=== PATIENT | female | born 1930 | race Hispanic/Latino ===

== ENCOUNTER 2017-03-06 10:31 | Inpatient (IN) | payer MEDICARE, BC ==
[2017-03-06 10:32] VITALS: BMI 22.6
--- NOTE | 2017-03-06 11:14 | C.PDOC ---
History Of Present Illness 86-year-old female, presents to the emergency department with complaints of pain to B/L lower extremities, left worse than right. Patient is sent here from Dialysis, for Dr Liu for further evaluation and possible admission. Chief Complaint (Nursing): Lower Extremity Problem/Injury History Per: Patient, Family History/Exam Limitations: no limitations Onset/Duration Of Symptoms: Days, Waxing/Waning Severity: Moderate Additional History Per: Family Past Medical History Reviewed: Historical Data, Nursing Documentation, Vital Signs Vital Signs: Last Vital Signs Temp 97.8 F 03/06/17 10:42 Pulse 71 03/06/17 10:42 Resp 18 03/06/17 10:42 BP 183/92 H 03/06/17 10:42 Pulse Ox 100 03/06/17 14:53 - Medical History PMH: Anxiety, Arthritis, Asthma, Atrial Fibrillation, CAD, Cardia Arrhythmia ( AFIB), CHF, COPD, Diabetes, Fractures (BRIDGE OF NOSE), HTN, Kidney Stones (1976 ), Peripheral Edema (ble +1 edema), Pneumonia, Chronic Kidney Disease Denies: Depression Surgical History: Coronary Stent (x7) Denies: Pacemaker - [facility] Procedures COLONOSCOPY (03/19/02) CONTRAST AORTOGRAM (05/25/14) CONTRAST ARTERIOGRAM-LEG (05/25/14) DIALYSIS ARTERIOVENOSTOM (09/04/12) DX ULTRASOUND-HEAD/NECK (03/01/12) ESOPHAGOGASTRODUODENOSCOPY [EGD] W/CLOSED BIOPSY (02/18/12) HEMODIALYSIS (02/17/15) INCIS W REM OF FORIEGN BODY OR DEV FROM SKIN & SUBCUT TISSUE (05/20/13) OCCUPATIONAL THERAPY (07/06/14) PACKED CELL TRANSFUSION (06/26/14) PHYSICAL THERAPY NEC (07/06/14) VASC SHUNT & BYPASS NEC (06/26/14) VENOUS CATHETERIZATION FOR RENAL DIALYSIS (03/01/12) Family History: States: No Known Family Hx - Social History Hx Tobacco Use: No Hx Alcohol Use: No Hx Substance Use: No - Immunization History Hx Tetanus Toxoid Vaccination: No Hx Influenza Vaccination: Yes Hx Pneumococcal Vaccination: Yes Review Of Systems Except As Marked, All Systems Reviewed And Found Negative. Constitutional: Negative for: Fever Cardiovascular: Negative for: Chest Pain Respiratory: Negative for: Cough, Shortness of Breath Musculoskeletal: Positive for: Foot Pain Physical Exam - Physical Exam Appears: Non-toxic, No Acute Distress Skin: Dry Head: Atraumatic Nose: Normal Oral Mucosa: Moist Lips: Normal Appearing Neck: Normal ROM Cardiovascular: Rhythm Regular, No Murmur Respiratory: Normal Breath Sounds, No Accessory Muscle Use Extremity: Tenderness (both feet left greater than right), Capillary Refill ( decdreased), Other (Left foot: cyanotic and cold to touch with gangrene and ulcer to first digit. Right foot: cyanotic, warm with ulcer and gangrene.) Neurological/Psych: Oriented x3 Gait: Unable To Assess ED Course And Treatment - Laboratory Results Result Diagrams: 03/06/17 12:05 03/06/17 13:10 Lab Interpretation: Abnormal ECG: Interpreted By Me ECG Rhythm: Sinus Tachycardia, Nonspecific Changes ECG Interpretation: No Acute Changes Rate From EC O2 Sat by Pulse Oximetry: 100 Pulse Ox Interpretation: Normal - Radiology CXR: Interpreted by Me CXR Interpretation: Yes: No Acute Disease Progress Note: Treated with tylenol 650 mg PO. Case discussed and patient evaluated by Dr Liu who request admission Reassessment Condition: Unchanged - Physician Consult Information Physician Contacted: Shabnam Ng Outcome Of Conversation: admit Disposition Discussed With : Shabnam Ng Doctor Will See Patient In The: Hospital - Disposition Disposition: HOSPITALIZED Disposition Time: 14:00 Condition: STABLE - POA Present On Arrival: None - Clinical Impression Clinical Impression: ESRD (end stage renal disease), Renal failure, Arterial, arteriole and capillary disease, Gangrene - Scribe Statement The provider has reviewed the documentation as recorded by the Scribe (Юлия Louis) All medical record entries made by the Scribe were at my direction and personally dictated by me. I have reviewed the chart and agree that the record accurately reflects my personal performance of the history, physical exam, medical decision making, and the department course for this patient. I have also personally directed, reviewed, and agree with the discharge instructions and disposition. Decision To Admit - Pt Status Changed To: Hospital Disposition Of: Inpatient - Admit Certification Admit to Inpatient:: After my assessment, the patient will require hospitalization for at least two midnights. This is because of the severity of symptoms shown, intensity of services needed, and/or the medical risk in this patient being treated as an outpatient. - InPatient: Physician Admission Certification: I certify that this patient requires 2 or more midnights of care for the following reason:: PVD. Ischemic left leg. gangrene foot - . Bed Request Type: Regular Admitting Physician: Antonio Drummond Patient Diagnosis: ESRD (end stage renal disease), Renal failure, Arterial, arteriole and capillary disease, Gangrene
[2017-03-06 12:18] LABS: BASO # 0.1 K/uL (0.0-0.2); BASO % 0.8 % (0.0-2.0); EOS # 0.7 K/uL (0.0-0.7); EOS % 6.7 % (0.0-4.0); HEMATOCRIT 38.6 % (34.0-47.0); LYMPH # 1.7 K/uL (1.0-4.3); LYMPH % 16.2 % (20.0-40.0); MEAN CELL VOLUME 86.7 fL (81.0-99.0); MEAN CORPUSCULAR HEMOGLOBIN 28.3 pg (27.0-31.0); MEAN CORPUSCULAR HGB CONC 32.6 g/dL (33.0-37.0); MEAN PLATELET VOLUME 9.8 fL (7.2-11.7); MONO # 1.3 K/uL (0.0-0.8); MONO % 11.6 % (0.0-10.0); RED CELL DISTRIBUTION WIDTH 14.2 % (11.5-14.5); WHITE BLOOD COUNT 10.8 K/uL (4.8-10.8)
[2017-03-06 13:23] LABS: POTASSIUM 4.8 mmol/L (3.6-5.2)
[2017-03-06 13:25] LABS: ALB/GLOB RATIO 1.1 (1.0-2.1); BILIRUBIN,TOTAL 0.6 mg/dL (0.2-1.3); TOTAL PROTEIN 7.5 g/dL (6.3-8.3)
[2017-03-06 13:26] LABS: CALCIUM 9.2 mg/dl (8.6-10.4)
--- NOTE | 2017-03-06 14:51 | RAD ---
PROCEDURE: CHEST RADIOGRAPH, 1 VIEW HISTORY: SOB COMPARISON: None available. FINDINGS: There is a left subclavian vascular stent. LUNGS: The lungs are well inflated. There are chronic changes in both lungs. No focal consolidation PLEURA: No pneumothorax or pleural fluid seen. CARDIOVASCULAR: The heart is normal in size. Atherosclerotic aortic arch calcifications are present. . OSSEOUS STRUCTURES: No significant abnormalities. VISUALIZED UPPER ABDOMEN: Normal. OTHER FINDINGS: There is elevation of the right hemidiaphragm. IMPRESSION: No active pulmonary disease.
--- NOTE | 2017-03-06 14:57 | CP.PCM.CON ---
History of Present Illness - History of Present Illness History of Present Illness: Vascular surgery consult note for Dr. Liu Consulted for: ischemic left leg Patient is a 86 year old female with PMH of afib, DM, CKD, and PVD, with PSH of Left fem-pop bypass by Dr. Liu >2 years ago presented to the ED with bilateral leg pain worse in the left. Patient states that her leg pain has been present for many months but has gotten significantly worse over the past week. Pain is associated with blue coloration of the toes and poikilothermia in the left leg. The pain is sharp in quality and states that her feet are both extremely sensitive. Pain radiates up through the front and back of the thigh. Patient explained this attack happens frequently in which the feet become very blue and painful but it is much worse the past week. Patient also reports having chronic wounds on her toes Bilaterally for 3 months that are worsening. Denies chills, nausea, vomiting, chest pain, and SOB. Patient states that currently her legs feel better than when she was admitted with some return of color to her feet. Review of Systems - Review of Systems All systems: reviewed and no additional remarkable complaints except (as per HPI ) - Constitutional Constitutional: absent: Chills, Fever, Weakness - Cardiovascular Cardiovascular: absent: Chest Pain, Chest Pain at Rest, Dyspnea, Edema - Respiratory Respiratory: absent: Cough, Dyspnea, Dyspnea on Exertion - Gastrointestinal Gastrointestinal: absent: Abdominal Pain, Hematochezia, Loose Stools, Melena, Nausea, Vomiting - Musculoskeletal Musculoskeletal: As Per HPI. absent: Numbness, Tingling Additional comments: Severe left leg pain, pallor, and coldness to the touch, no palpable pulses BL. - Integumentary Integumentary: As Per HPI, Non-Healing Lesions (large toes BL) - Neurological Neurological: Dizziness, Paresthesias. absent: Disequilibrium, Numbness Past Patient History - Infectious Disease Hx of Infectious Diseases: None - Tetanus Immunizations Tetanus Immunization: Unknown - Past Social History Smoking Status: Former Smoker - CARDIAC Hx Atrial Fibrillation: Yes Hx Cardia Arrhythmia: Yes (AFIB) Hx Congestive Heart Failure: Yes Hx Hypertension: Yes Hx Pacemaker: No Hx Peripheral Edema: Yes (ble +1 edema) - PULMONARY Hx Asthma: Yes Hx Chronic Obstructive Pulmonary Disease (COPD): Yes Hx Pneumonia: Yes - NEUROLOGICAL Hx Neurological Disorder: Yes Hx Dizziness: Yes - HEENT Hx HEENT Problems: No - RENAL Hx Chronic Kidney Disease: Yes Hx Kidney Stones: Yes (1975) - ENDOCRINE/METABOLIC Hx Endocrine Disorders: Yes Hx Diabetes Mellitus Type 2: Yes - HEMATOLOGICAL/ONCOLOGICAL Hx Blood Disorders: Yes (blood transfusion) - INTEGUMENTARY Hx Dermatological Problems: Yes Other/Comment: fading red rash to ble from knees to feet and r arm, bright red rash to right hand and arm, right hand/arm rash started today, right great toe right foot 0.2cm round brown dry wound, r 5th toe redness tip is purple due to medication,redness swelling to toes decreasing since yesterday as per family member and pt. small 0.2cm round brown dry wound to outer left great toe redness and swelling to toes improving since yesterday as per family member and pt but still has +1 edema to left foot, hard thick toenails b/l feet, both feet sensitive to touch - MUSCULOSKELETAL/RHEUMATOLOGICAL Hx Arthritis: Yes Hx Fractures: Yes (BRIDGE OF NOSE) - GASTROINTESTINAL Hx Gastrointestinal Disorders: Yes (hemorrhoid) Hx Ulcer: Yes Other/Comment: constipatiion has resolved x 1 yr pt does not take laxatives anymore - GENITOURINARY/GYNECOLOGICAL Hx Genitourinary Disorders: Yes Other/Comment: pt voids every day x3 [place] [facility] [place] PSYCHIATRIC Hx Anxiety: Yes Hx Depression: No Hx Substance Use: No - SURGICAL HISTORY Hx Coronary Stent: Yes (x7) - ANESTHESIA Hx Anesthesia Reactions: No Hx Malignant Hyperthermia: No Meds Allergies/Adverse Reactions: Allergies Allergy/AdvReac Type Severity Reaction Status Date / Time ciprofloxacin Allergy Severe hives Verified 03/06/17 11:09 codeine Allergy Severe hives Verified 03/06/17 11:09 Sulfa (Sulfonamide Allergy Severe HIVES Verified 03/06/17 11:09 Antibiotics) iodine Allergy ANAPHYLAXIS Verified 03/06/17 11:09 - Medications Medications: Current Medications Home Med (B Complex W-C No.20/Folic Acid [Triphrocaps Softgel]) 1 mg PO DAILY [facility] Home Med (Calcium Acetate [Calcium Acetate]) 667 mg PO .BEFOREMEALS [facility] Lisinopril (Zestril) 20 mg PO BID [facility] Metoprolol Succinate (Toprol Xl) 25 mg PO BID [facility] Physical Exam - Constitutional Appears: Non-toxic, No Acute Distress - Head Exam Head Exam: ATRAUMATIC, NORMOCEPHALIC - Eye Exam Eye Exam: Normal appearance. absent: Conjunctival injection, Scleral icterus - ENT Exam ENT Exam: Mucous Membranes Moist, Normal Oropharynx - Respiratory Exam Respiratory Exam: NORMAL BREATHING PATTERN. absent: Accessory Muscle Use, Respiratory Distress - Cardiovascular Exam Cardiovascular Exam: RRR - GI/Abdominal Exam GI & Abdominal Exam: absent: Distended, Soft, Tenderness - Extremities Exam Extremities exam: Positive for: tenderness (tenderness to light palpation in the lower leg and feet). Negative for: calf tenderness, normal capillary refill , pedal edema, pedal pulses present Additional comments: small lesions in the skin of multiple toes BL, with eschar overlying them. Cyanosis of the toes - Neurological Exam Neurological exam: Alert, Oriented x3 - Psychiatric Exam Psychiatric exam: Normal Affect, Normal Mood - Skin Skin Exam: Dry Additional comments: warm, dry, intact except as noted in the extremity exam Results - Vital Signs Recent Vital Signs: Last Vital Signs Temp 97.8 F 03/06/17 10:42 Pulse 71 03/06/17 10:42 Resp 18 03/06/17 10:42 BP 183/92 H 03/06/17 10:42 Pulse Ox 100 03/06/17 14:56 - Labs Result Diagrams: 03/06/17 12:05 03/06/17 13:10 Labs: Laboratory Results - last 24 hr 03/06/17 03/06/17 03/06/17 12:05 13:10 13:10 WBC 10.8 RBC 4.45 Hgb 12.6 Hct 38.6 MCV 86.7 MCH 28.3 MCHC 32.6 L RDW 14.2 Plt Count 235 MPV 9.8 Neut % (Auto) 64.7 Lymph % (Auto) 16.2 L Stafford % (Auto) 11.6 H Eos % (Auto) 6.7 H Baso % (Auto) 0.8 Neut # 7.0 Lymph # 1.7 Stafford # 1.3 H Eos # 0.7 Baso # 0.1 Sodium 139 Potassium 4.8 Chloride 92 L Carbon Dioxide 29 Anion Gap 23 H BUN 26 H Creatinine 3.6 H Est GFR ( Amer) 15 Est GFR (Non-Af Amer) 12 Random Glucose 119 H Calcium 9.2 Total Bilirubin 0.6 AST 18 ALT 25 Alkaline Phosphatase 85 Total Protein 7.5 Albumin 3.9 Globulin 3.5 Albumin/Globulin Ratio 1.1 Blood Type O POSITIVE Antibody Screen Negative Assessment & Plan - Assessment and Plan (Free Text) Assessment: 86 year old female with an ischemic left lower leg, suspicious for femoral- popliteal artery bypass occlusion. Plan -angiocatheterization with possible revascularization tomorrow -type and cross blood -analgesia, IVF -NPO after midnight -f/u duplex of lower extremities -monitor overnight Discussed with Dr. Alexa Shelton, PGY2
[2017-03-06] MEDS ORDERED: [UNRECOGNIZED DRUG - REMARK] PO SCH (15:00)
[2017-03-06] MEDS ORDERED: Heparin25000 units/250ml 1/2NS 25,000 UNITS/250 ML BAG IV PRN (16:13)
--- NOTE | 2017-03-06 16:40 | CP.PCM.HP ---
<Irina LoveDarrel - Last Filed: 03/06/17 18:25> History of Present Illness - History of Present Illness History of Present Illness: CC: right leg pain HPI: Patient is a 86 year old female with PMH of CAD, coronary stents x 7, AFib , CHF, COPD, DM, HTN, CKD (dialysis MWF), asthma, arthritis, anxiety, left leg femoral popliteal artery bypass (2014), who presents today for right leg pain and because her staffing and scheduling coordinator was concerned for a clot. Patient has been having left leg pain for one week. At home patient walks with a cane and has been able to continue ambulating this past week. Patient went to hemodialysis at [facility] [place] this morning with Dr. Cohen who was concerned for a clot in her left leg because of cyanosis and feeling cold to the touch. Dr. Cohen contacted Dr. Liu (vascular surgery) who told him to send patient to Emergency Room. Patient says she is feeling okay but her left leg is bothering her. She says it feels better when she is sitting with her feet dangling off the bed and worse when she is laying flat in bed. Patient admits to some abdominal pain and nausea in the past week which has resolved. She has had no episodes of vomiting. Patient admits to some dizziness during dialysis which is now resolved. She denies headache, shortness of breath, chest pain, constipation, diarrhea. PMD: Jeremie Cuellar Cardio: Dr. Hughes Nephro: Dr. Cohen Pmhx: CAD, coronary stents x 7, AFib, CHF, COPD, DM, HTN, CKD (dialysis MWF), asthma, arthritis, anxiety Psurg: left leg femoral popliteal artery bypass (2015), 7 stents Fam history: mother had CAD, cirrhosis, otherwise unknown Socialhx: stopped smoking cigarettes 30 years ago Allergies: Ciprofloxacin, Codeine, Sulfa- hives iodine -anaphylaxis Present on Admission - Present on Admission Any Indicators Present on Admission: Yes History of DVT/PE: Yes History of Uncontrolled Diabetes: No Urinary Catheter: No Decubitus Ulcer Present: No Review of Systems - Constitutional Constitutional: Weight Loss. absent: Frequent Falls, Headache, Weakness - EENT Eyes: absent: Blind Spots, Blurred Vision, Diplopia, Loss of Vision Ears: absent: Decreased Hearing, Dizziness Nose/Mouth/Throat: absent: Nasal Congestion, Hoarsness, Mouth Pain, Sore Throat - Cardiovascular Cardiovascular: absent: Dyspnea, Leg Edema, Lightheadedness, Palpitations - Respiratory Respiratory: Excessive Mucous Production - Gastrointestinal Gastrointestinal: absent: Abdominal Pain, Constipation, Diarrhea - Genitourinary Genitourinary: absent: Change in Urinary Stream, Difficulty Urinating, Urinary Incontinence, Urinary Frequency, Urinary Urgency - Musculoskeletal Musculoskeletal: absent: Muscle Weakness Additional comments: left leg pain - Integumentary Additional comments: bilateral ulcers on feet two ulcer on right toes and one on left foot - Neurological Neurological: absent: Dizziness - Psychiatric Psychiatric: absent: Behavioral Changes, Confusion - Endocrine Endocrine: absent: Change in Body Appearance, Palpitations - Hematologic/Lymphatic Hematologic: absent: Easy Bleeding, Easy Bruising Past Patient History - Infectious Disease Hx of Infectious Diseases: None - Tetanus Immunizations Tetanus Immunization: Unknown - Past Social History Smoking Status: Former Smoker - CARDIAC Hx Atrial Fibrillation: Yes Hx Cardia Arrhythmia: Yes (AFIB) Hx Congestive Heart Failure: Yes Hx Hypertension: Yes Hx Pacemaker: No Hx Peripheral Edema: Yes (ble +1 edema) - PULMONARY Hx Asthma: Yes Hx Chronic Obstructive Pulmonary Disease (COPD): Yes Hx Pneumonia: Yes - NEUROLOGICAL Hx Neurological Disorder: Yes Hx Dizziness: Yes - HEENT Hx HEENT Problems: No - RENAL Hx Chronic Kidney Disease: Yes Hx Kidney Stones: Yes (1975) - ENDOCRINE/METABOLIC Hx Endocrine Disorders: Yes Hx Diabetes Mellitus Type 2: Yes - HEMATOLOGICAL/ONCOLOGICAL Hx Blood Disorders: Yes (blood transfusion) - INTEGUMENTARY Hx Dermatological Problems: Yes Other/Comment: fading red rash to ble from knees to feet and r arm, bright red rash to right hand and arm, right hand/arm rash started today, right great toe right foot 0.2cm round brown dry wound, r 5th toe redness tip is purple due to medication,redness swelling to toes decreasing since yesterday as per family member and pt. small 0.2cm round brown dry wound to outer left great toe redness and swelling to toes improving since yesterday as per family member and pt but still has +1 edema to left foot, hard thick toenails b/l feet, both feet sensitive to touch - MUSCULOSKELETAL/RHEUMATOLOGICAL Hx Arthritis: Yes Hx Fractures: Yes (BRIDGE OF NOSE) - GASTROINTESTINAL Hx Gastrointestinal Disorders: Yes (hemorrhoid) Hx Ulcer: Yes Other/Comment: constipatiion has resolved x 1 yr pt does not take laxatives anymore - GENITOURINARY/GYNECOLOGICAL Hx Genitourinary Disorders: Yes Other/Comment: pt voids every day x3 dialysis m/w/f at [facility] [place] - PSYCHIATRIC Hx Anxiety: Yes Hx Depression: No Hx Substance Use: No - SURGICAL HISTORY Hx Coronary Stent: Yes (x7) - ANESTHESIA Hx Anesthesia Reactions: No Hx Malignant Hyperthermia: No Meds Allergies/Adverse Reactions: Allergies Allergy/AdvReac Type Severity Reaction Status Date / Time ciprofloxacin Allergy Severe hives Verified 03/06/17 11:09 codeine Allergy Severe hives Verified 03/06/17 11:09 Sulfa (Sulfonamide Allergy Severe HIVES Verified 03/06/17 11:09 Antibiotics) iodine Allergy ANAPHYLAXIS Verified 03/06/17 11:09 Physical Exam - Constitutional Appears: Non-toxic, No Acute Distress - Head Exam Head Exam: ATRAUMATIC, NORMAL INSPECTION, NORMOCEPHALIC - Eye Exam Eye Exam: EOMI, Normal appearance, PERRL - ENT Exam ENT Exam: Mucous Membranes Moist, Normal Exam - Neck Exam Neck exam: Positive for: Full Rom, Normal Inspection - Respiratory Exam Respiratory Exam: Rales, NORMAL BREATHING PATTERN Additional comments: faint bibasilar rales - Cardiovascular Exam Cardiovascular Exam: REGULAR RHYTHM, RRR - GI/Abdominal Exam GI & Abdominal Exam: Normal Bowel Sounds, Soft. absent: Distended, Firm, Guarding - Extremities Exam Extremities exam: Positive for: calf tenderness. Negative for: pedal edema Additional comments: left foot cold to the touch capillary refill <2 seconds left toes cyanotic right 5th toe dip: unstageable ulcer .8cm right 1st toe dip: .5 cm ulcer left 1st toe dip: .5cm ulcer ulcers dry, no purulence, no malodor - Back Exam Back exam: NORMAL INSPECTION. absent: rash noted - Neurological Exam Neurological exam: Alert, Oriented x3 - Psychiatric Exam Psychiatric exam: Normal Affect, Normal Mood - Skin Additional comments: left foot cold to the touch, cyanotic toes right 5th toe dip: unstageable ulcer .8cm right 1st toe dip: .5 cm ulcer left 1st toe dip: .5cm ulcer ulcers dry, no purulence, no malodor Results - Vital Signs Recent Vital Signs: Last Vital Signs Temp 97.8 F 03/06/17 10:42 Pulse 85 03/06/17 15:31 Resp 18 03/06/17 15:31 BP 187/74 H 03/06/17 15:39 Pulse Ox 97 03/06/17 15:31 - Labs Result Diagrams: 03/06/17 12:05 03/06/17 16:52 Labs: Laboratory Results - last 24 hr 03/06/17 03/06/17 03/06/17 12:05 13:10 13:10 WBC 10.8 RBC 4.45 Hgb 12.6 Hct 38.6 MCV 86.7 MCH 28.3 MCHC 32.6 L RDW 14.2 Plt Count 235 MPV 9.8 Neut % (Auto) 64.7 Lymph % (Auto) 16.2 L [place] % (Auto) 11.6 H Eos % (Auto) 6.7 H Baso % (Auto) 0.8 Neut # 7.0 Lymph # 1.7 [place] # 1.3 H Eos # 0.7 Baso # 0.1 Sodium 139 Potassium 4.8 Chloride 92 L Carbon Dioxide 29 Anion Gap 23 H BUN 26 H Creatinine 3.6 H Est GFR ( Amer) 15 Est GFR (Non-Af Amer) 12 Random Glucose 119 H Calcium 9.2 Total Bilirubin 0.6 AST 18 ALT 25 Alkaline Phosphatase 85 Total Protein 7.5 Albumin 3.9 Globulin 3.5 Albumin/Globulin Ratio 1.1 Blood Type O POSITIVE Antibody Screen Negative Assessment & Plan - Assessment and Plan (Free Text) Assessment: 1. Peripheral Vascular Disease Dr. Liu (surgery) consulted, help appreciated patient to go for procedure 03/07/17 NPO at midnight Heparin drip started, to be stopped on 03/07 at 9am PT, PTT, INR 2. CAD s/p 7 stents cardio: Dr. Hughes, consulted, help appreciated Metoprolol 25 mg PO BID hold if systolic <100, HR <60 3. Foot ulcers right 5th toe DIP: unstageable ulcer .8cm, black/purple in color due to medication right 1st toe DIP: .5 cm ulcer left 1st toe DIP: .5cm ulcer * ulcers dry, no purulence, no malodor Dr. Cuadra, podiatry following ulcers outpatient Dr. Cuadra consulted, help appreciated 4. CHF Echo (01/2017) - EF estimated to be 55% ekg: NSR with first degree block (unchanged from 01/26) Crestor 10 mg f/u proBNP f/u lipid panel f/u TSH, T4 5. HTN Metoprolol 25 mg PO BID hold if systolic <100, HR <60 Lisinopril 20 mg PO BID Clonidine .1mg for systolic >160 6. DM type 2 hold prandin due to procedure tomorrow which may/may not include contrast accuchecks ACHS ISS -- low 7. ESRD Dr. Cohen, consulted, help appreciated * physician is aware Hemodialysis MWF 8. COPD, Asthma Ipratropium 2 puff IH q6h PRN 9. Hx Afib vitals stable, HR controlled, no need for telemetry metoprolol as above aspirin held because heparin drip started 10. Hx anxiety monitor 11. Hx arthritis monitor 12. Prophylactic measures pepcid 20 mg BID heparin drip SCDs contraindicated fluid restriction -24 oz per day <Antonio Drummond - Last Filed: 03/06/17 21:12> Results - Vital Signs Recent Vital Signs: Last Vital Signs Temp 98.4 F 03/06/17 18:15 Pulse 84 03/06/17 18:15 Resp 20 03/06/17 18:15 BP 175/65 H 03/06/17 18:15 Pulse Ox 99 03/06/17 18:15 - Labs Result Diagrams: 03/06/17 12:05 03/06/17 16:52 Labs: Laboratory Results - last 24 hr 03/06/17 03/06/17 03/06/17 12:05 13:10 13:10 WBC 10.8 RBC 4.45 Hgb 12.6 Hct 38.6 MCV 86.7 MCH 28.3 MCHC 32.6 L RDW 14.2 Plt Count 235 MPV 9.8 Neut % (Auto) 64.7 Lymph % (Auto) 16.2 L [place] % (Auto) 11.6 H Eos % (Auto) 6.7 H Baso % (Auto) 0.8 Neut # 7.0 Lymph # 1.7 [place] # 1.3 H Eos # 0.7 Baso # 0.1 PT INR APTT Sodium 139 Potassium 4.8 Chloride 92 L Carbon Dioxide 29 Anion Gap 23 H BUN 26 H Creatinine 3.6 H Est GFR ( Amer) 15 Est GFR (Non-Af Amer) 12 POC Glucose (mg/dL) Random Glucose 119 H Calcium 9.2 Total Bilirubin 0.6 AST 18 ALT 25 Alkaline Phosphatase 85 Total Protein 7.5 Albumin 3.9 Globulin 3.5 Albumin/Globulin Ratio 1.1 Blood Type O POSITIVE Antibody Screen Negative 03/06/17 03/06/17 03/06/17 16:52 16:52 16:52 WBC RBC Hgb Hct MCV MCH MCHC RDW Plt Count MPV Neut % (Auto) Lymph % (Auto) [place] % (Auto) Eos % (Auto) Baso % (Auto) Neut # Lymph # [place] # Eos # Baso # PT 10.1 INR 0.9 APTT 29 Sodium 137 Potassium 5.1 Chloride 91 L Carbon Dioxide 29 Anion Gap 22 H BUN 27 H Creatinine 3.9 H Est GFR ( Amer) 13 Est GFR (Non-Af Amer) 11 POC Glucose (mg/dL) Random Glucose 143 H Calcium 9.3 Total Bilirubin AST ALT Alkaline Phosphatase Total Protein Albumin Globulin Albumin/Globulin Ratio Blood Type O POSITIVE Antibody Screen 03/06/17 17:01 WBC RBC Hgb Hct MCV MCH MCHC RDW Plt Count MPV Neut % (Auto) Lymph % (Auto) [place] % (Auto) Eos % (Auto) Baso % (Auto) Neut # Lymph # [place] # Eos # Baso # PT INR APTT Sodium Potassium Chloride Carbon Dioxide Anion Gap BUN Creatinine Est GFR ( Amer) Est GFR (Non-Af Amer) POC Glucose (mg/dL) 162 H Random Glucose Calcium Total Bilirubin AST ALT Alkaline Phosphatase Total Protein Albumin Globulin Albumin/Globulin Ratio Blood Type Antibody Screen Attending/Attestation - Attestation I have personally seen and examined this patient.: Yes I have fully participated in the care of the patient.: Yes I have reviewed all pertinent clinical information: Yes Notes (Text): 03/06/17 21:10 Patient was seen and examined with the Resident in the ER Bed #13. History, Physical, Assessment and Plan were thoroughly gone over with the Resident. Antonio Drummond D.O.
[2017-03-06 17:08] LABS: INR 0.9
[2017-03-06 17:09] LABS: POTASSIUM 5.1 mmol/L (3.6-5.2)
[2017-03-06 17:12] LABS: CALCIUM 9.3 mg/dl (8.6-10.4)
[2017-03-06] MEDS: (Novolin R) Insulin Human Regular 100 units/ml vial SC SCH ×2 (17:14→22:12)
[2017-03-06] MEDS: Metoprolol Succinate 25 mg XL Tab PO SCH (17:14)
[2017-03-06] MEDS ORDERED: Ipratropium 17 mcg/puff-200 puff/12.5 gm HFA Inh IH PRN (17:34)
--- NOTE | 2017-03-06 19:21 | CP.PCM.CON ---
History of Present Illness - History of Present Illness History of Present Illness: covering for Dr Adkins Ms Spann is an 86 year old lady with hx of DM, HTN, CAD, ESRD on maintenance HD, COPD, and PAD. she is post pci X 7 stents in 2 setting in and 2013. ? reports of A fib, however currently she is in sinus, no reported a fib before and the pt is not on anticoagulation. had prior fem pop bypass, and lately with progressive leg pain and acute ischemia, planned for angiogram and possible intervention in AM. Last month, at [facility], she had an Echo and a stress test, it was neg for ischemia with normal LV contractility, no , no effusion. now no CP or SOB on pain management and IV heparin. She carries an acceptable risk for cardiac complication from surgery. Review of Systems - Review of Systems Systems not reviewed;Unavailable: Unstable Vital Signs, Uncooperative - Constitutional Constitutional: Anorexia - EENT Eyes: absent: Discharge Ears: absent: Ear Discharge Nose/Mouth/Throat: absent: Epistaxis - Cardiovascular Cardiovascular: absent: Acrocyanosis, Chest Pain, Diaphoresis, Palpitations, Syncope - Respiratory Respiratory: absent: Dyspnea, Hemoptysis - Gastrointestinal Gastrointestinal: absent: Abdominal Pain, Diarrhea, Melena, Vomiting - Genitourinary Genitourinary: absent: Change in Urinary Stream - Reproductive: Female Reproductive:Female: Post Menopausal Past Patient History - Infectious Disease Hx of Infectious Diseases: None - Tetanus Immunizations Tetanus Immunization: Unknown - Past Social History Smoking Status: Former Smoker - CARDIAC Hx Atrial Fibrillation: Yes Hx Cardia Arrhythmia: Yes (AFIB) Hx Congestive Heart Failure: Yes Hx Hypertension: Yes Hx Pacemaker: No Hx Peripheral Edema: Yes (ble +1 edema) - PULMONARY Hx Asthma: Yes Hx Chronic Obstructive Pulmonary Disease (COPD): Yes Hx Pneumonia: Yes - NEUROLOGICAL Hx Neurological Disorder: Yes Hx Dizziness: Yes - HEENT Hx HEENT Problems: No - RENAL Hx Chronic Kidney Disease: Yes Hx Kidney Stones: Yes (1975) - ENDOCRINE/METABOLIC Hx Endocrine Disorders: Yes Hx Diabetes Mellitus Type 2: Yes - HEMATOLOGICAL/ONCOLOGICAL Hx Blood Disorders: Yes (blood transfusion) - INTEGUMENTARY Hx Dermatological Problems: Yes Other/Comment: fading red rash to ble from knees to feet and r arm, bright red rash to right hand and arm, right hand/arm rash started today, right great toe right foot 0.2cm round brown dry wound, r 5th toe redness tip is purple due to medication,redness swelling to toes decreasing since yesterday as per family member and pt. small 0.2cm round brown dry wound to outer left great toe redness and swelling to toes improving since yesterday as per family member and pt but still has +1 edema to left foot, hard thick toenails b/l feet, both feet sensitive to touch - MUSCULOSKELETAL/RHEUMATOLOGICAL Hx Arthritis: Yes Hx Fractures: Yes (BRIDGE OF NOSE) - GASTROINTESTINAL Hx Gastrointestinal Disorders: Yes (hemorrhoid) Hx Ulcer: Yes Other/Comment: constipatiion has resolved x 1 yr pt does not take laxatives anymore - GENITOURINARY/GYNECOLOGICAL Hx Genitourinary Disorders: Yes Other/Comment: pt voids every day [place] [facility] [place] Hx Anxiety: Yes Hx Depression: No Hx Substance Use: No - SURGICAL HISTORY Hx Coronary Stent: Yes (x7) - ANESTHESIA Hx Anesthesia Reactions: No Hx Malignant Hyperthermia: No Meds Allergies/Adverse Reactions: Allergies Allergy/AdvReac Type Severity Reaction Status Date / Time ciprofloxacin Allergy Severe hives Verified 03/06/17 11:09 codeine Allergy Severe hives Verified 03/06/17 11:09 Sulfa (Sulfonamide Allergy Severe HIVES Verified 03/06/17 11:09 Antibiotics) iodine Allergy ANAPHYLAXIS Verified 03/06/17 11:09 - Medications Medications: Current Medications Calcium Acetate (Phoslo) 667 mg PO TIDCC [facility] Last Admin: 03/06/17 17:14 Dose: 667 mg Clonidine HCl (Catapres) 0.1 mg PO Q12H PRN PRN Reason: SYSTOLIC BP ABOVE 160 Heparin Sodium/Sodium Chloride (Heparin 57432 Units/250ml 1/2 Normal Saline) 25 ,000 units in 250 mls @ 13.472 mls/hr IV .[id number] PRN; Protocol; 18 UNITS/KG/HR PRN Reason: PROTOCOL Stop: 03/07/17 09:00 Last Admin: 03/06/17 17:29 Dose: 18 units/kg/hr, 13.472 mls/hr Insulin Human Regular (Novolin R) 0 unit SC ACHS [facility] PRN Reason: Protocol Last Admin: 03/06/17 17:14 Dose: Not Given Ipratropium [place] (Atrovent Hfa) 2 puff IH RQ6 PRN PRN Reason: Shortness of Breath Ketorolac Tromethamine (Toradol) 30 mg IVP Q6 PRN PRN Reason: Pain, moderate (4-7) Lisinopril (Zestril) 20 mg PO BID [facility] Last Admin: 03/06/17 17:30 Dose: 20 mg Metoprolol Succinate (Toprol Xl) 25 mg PO BID [facility] Last Admin: 03/06/17 17:14 Dose: 25 mg Rosuvastatin Calcium (Crestor) 10 mg PO [facility] Vitamin B Complex/Vit C/Folic Acid (Nephro-Jane) 1 tab PO 0800 [facility] Physical Exam - Constitutional Appears: Toxic - Head Exam Head Exam: ATRAUMATIC - Eye Exam Eye Exam: EOMI - ENT Exam ENT Exam: Mucous Membranes Moist - Neck Exam Neck exam: Negative for: Lymphadenopathy, Thyromegaly - Respiratory Exam Respiratory Exam: Clear to Auscultation Bilateral. absent: Rales - Cardiovascular Exam Cardiovascular Exam: REGULAR RHYTHM, Systolic Murmur - GI/Abdominal Exam GI & Abdominal Exam: Normal Bowel Sounds. absent: Organomegaly - Rectal Exam Rectal Exam: Deferred - Extremities Exam Extremities exam: Negative for: normal capillary refill, pedal edema - Neurological Exam Neurological exam: Alert - Psychiatric Exam Psychiatric exam: Anxious - Skin Skin Exam: Dry Results - Vital Signs Recent Vital Signs: Last Vital Signs Temp 98 F 03/06/17 17:14 Pulse 85 03/06/17 17:14 Resp 16 03/06/17 17:14 BP 156/80 H 03/06/17 17:14 Pulse Ox 98 03/06/17 17:14 - Labs Result Diagrams: 03/08/17 05:59 03/08/17 05:59 Labs: Laboratory Results - last 24 hr 03/06/17 03/06/17 03/06/17 12:05 13:10 13:10 WBC 10.8 RBC 4.45 Hgb 12.6 Hct 38.6 MCV 86.7 MCH 28.3 MCHC 32.6 L RDW 14.2 Plt Count 235 MPV 9.8 Neut % (Auto) 64.7 Lymph % (Auto) 16.2 L [place] % (Auto) 11.6 H Eos % (Auto) 6.7 H Baso % (Auto) 0.8 Neut # 7.0 Lymph # 1.7 [place] # 1.3 H Eos # 0.7 Baso # 0.1 PT INR APTT Sodium 139 Potassium 4.8 Chloride 92 L Carbon Dioxide 29 Anion Gap 23 H BUN 26 H Creatinine 3.6 H Est GFR ( Amer) 15 Est GFR (Non-Af Amer) 12 POC Glucose (mg/dL) Random Glucose 119 H Calcium 9.2 Total Bilirubin 0.6 AST 18 ALT 25 Alkaline Phosphatase 85 Total Protein 7.5 Albumin 3.9 Globulin 3.5 Albumin/Globulin Ratio 1.1 Blood Type O POSITIVE Antibody Screen Negative 03/06/17 03/06/17 03/06/17 16:52 16:52 16:52 WBC RBC Hgb Hct MCV MCH MCHC RDW Plt Count MPV Neut % (Auto) Lymph % (Auto) [place] % (Auto) Eos % (Auto) Baso % (Auto) Neut # Lymph # [place] # Eos # Baso # PT 10.1 INR 0.9 APTT 29 Sodium 137 Potassium 5.1 Chloride 91 L Carbon Dioxide 29 Anion Gap 22 H BUN 27 H Creatinine 3.9 H Est GFR ( Amer) 13 Est GFR (Non-Af Amer) 11 POC Glucose (mg/dL) Random Glucose 143 H Calcium 9.3 Total Bilirubin AST ALT Alkaline Phosphatase Total Protein Albumin Globulin Albumin/Globulin Ratio Blood Type O POSITIVE Antibody Screen 03/06/17 17:01 WBC RBC Hgb Hct MCV MCH MCHC RDW Plt Count MPV Neut % (Auto) Lymph % (Auto) [place] % (Auto) Eos % (Auto) Baso % (Auto) Neut # Lymph # [place] # Eos # Baso # PT INR APTT Sodium Potassium Chloride Carbon Dioxide Anion Gap BUN Creatinine Est GFR ( Amer) Est GFR (Non-Af Amer) POC Glucose (mg/dL) 162 H Random Glucose Calcium Total Bilirubin AST ALT Alkaline Phosphatase Total Protein Albumin Globulin Albumin/Globulin Ratio Blood Type Antibody Screen Assessment & Plan (1) Arterial, arteriole and capillary disease Status: Acute Comment: acute ischemi, for interventio. acceptable risk for cardiac complication from surgery (2) Status post coronary artery stent placement Status: Chronic Comment: stable neg stress for ischemia , NL LV 01/2017 (3) Diabetes 1.5, managed as type 2 Status: Chronic (4) ESRD (end stage renal disease) Status: Chronic (5) Hypertension Status: Chronic
--- NOTE | 2017-03-06 19:48 | CP.PCM.CON ---
History of Present Illness - History of Present Illness History of Present Illness: 86 year old female well known to me with cold discolored left foot sudden onset . Pt has history of ischemic wounds on toes .Pt has extensive medical history including DM,ESRD, Afib and CHF . Review of Systems - Constitutional Constitutional: As Per HPI - EENT Eyes: As Per HPI Nose/Mouth/Throat: As Per HPI - Cardiovascular Cardiovascular: As Per HPI - Respiratory Respiratory: As Per HPI - Gastrointestinal Gastrointestinal: As Per HPI - Genitourinary Genitourinary: As Per HPI - Musculoskeletal Musculoskeletal: As Per HPI - Integumentary Integumentary: As Per HPI - Neurological Neurological: As Per HPI Past Patient History - Infectious Disease Hx of Infectious Diseases: None - Tetanus Immunizations Tetanus Immunization: Unknown - Past Social History Smoking Status: Former Smoker - CARDIAC Hx Atrial Fibrillation: Yes Hx Cardia Arrhythmia: Yes (AFIB) Hx Congestive Heart Failure: Yes Hx Hypertension: Yes Hx Pacemaker: No Hx Peripheral Edema: Yes (ble +1 edema) - PULMONARY Hx Asthma: Yes Hx Chronic Obstructive Pulmonary Disease (COPD): Yes Hx Pneumonia: Yes - NEUROLOGICAL Hx Neurological Disorder: Yes Hx Dizziness: Yes - HEENT Hx HEENT Problems: No - RENAL Hx Chronic Kidney Disease: Yes Hx Kidney Stones: Yes (1975) - ENDOCRINE/METABOLIC Hx Endocrine Disorders: Yes Hx Diabetes Mellitus Type 2: Yes - HEMATOLOGICAL/ONCOLOGICAL Hx Blood Disorders: Yes (blood transfusion) - INTEGUMENTARY Hx Dermatological Problems: Yes Other/Comment: fading red rash to ble from knees to feet and r arm, bright red rash to right hand and arm, right hand/arm rash started today, right great toe right foot 0.2cm round brown dry wound, r 5th toe redness tip is purple due to medication,redness swelling to toes decreasing since yesterday as per family member and pt. small 0.2cm round brown dry wound to outer left great toe redness and swelling to toes improving since yesterday as per family member and pt but still has +1 edema to left foot, hard thick toenails b/l feet, both feet sensitive to touch - MUSCULOSKELETAL/RHEUMATOLOGICAL Hx Arthritis: Yes Hx Fractures: Yes (BRIDGE OF NOSE) - GASTROINTESTINAL Hx Gastrointestinal Disorders: Yes (hemorrhoid) Hx Ulcer: Yes Other/Comment: constipatiion has resolved x 1 yr pt does not take laxatives anymore - GENITOURINARY/GYNECOLOGICAL Hx Genitourinary Disorders: Yes Other/Comment: pt voids every day x3 dialysis m/w/f at [facility] [place] - PSYCHIATRIC Hx Anxiety: Yes Hx Depression: No Hx Substance Use: No - SURGICAL HISTORY Hx Coronary Stent: Yes (x7) - ANESTHESIA Hx Anesthesia Reactions: No Hx Malignant Hyperthermia: No Meds Allergies/Adverse Reactions: Allergies Allergy/AdvReac Type Severity Reaction Status Date / Time ciprofloxacin Allergy Severe hives Verified 03/06/17 11:09 codeine Allergy Severe hives Verified 03/06/17 11:09 Sulfa (Sulfonamide Allergy Severe HIVES Verified 03/06/17 11:09 Antibiotics) iodine Allergy ANAPHYLAXIS Verified 03/06/17 11:09 - Medications Medications: Current Medications Calcium Acetate (Phoslo) 667 mg PO TIDCC [facility] Last Admin: 03/06/17 17:14 Dose: 667 mg Clonidine HCl (Catapres) 0.1 mg PO Q12H PRN PRN Reason: SYSTOLIC BP ABOVE 160 Heparin Sodium/Sodium Chloride (Heparin 96621 Units/250ml 1/2 Normal Saline) 25 ,000 units in 250 mls @ 13.472 mls/hr IV .[id number] PRN; Protocol; 18 UNITS/KG/HR PRN Reason: PROTOCOL Stop: 03/07/17 09:00 Last Admin: 03/06/17 17:29 Dose: 18 units/kg/hr, 13.472 mls/hr Insulin Human Regular (Novolin R) 0 unit SC ACHS [facility] PRN Reason: Protocol Last Admin: 03/06/17 17:14 Dose: Not Given Ipratropium [place] (Atrovent Hfa) 2 puff IH RQ6 PRN PRN Reason: Shortness of Breath Ketorolac Tromethamine (Toradol) 30 mg IVP Q6 PRN PRN Reason: Pain, moderate (4-7) Last Admin: 03/06/17 19:29 Dose: 30 mg Lisinopril (Zestril) 20 mg PO BID [facility] Last Admin: 03/06/17 17:30 Dose: 20 mg Metoprolol Succinate (Toprol Xl) 25 mg PO BID [facility] Last Admin: 03/06/17 17:14 Dose: 25 mg Rosuvastatin Calcium (Crestor) 10 mg PO [facility] Vitamin B Complex/Vit C/Folic Acid (Nephro-Jane) 1 tab PO 0800 [facility] Physical Exam - Extremities Exam Additional comments: O/ Ischemic ulcer dry with eschar tip of toe 5 right . Dry eschar hallux b/l . Left foot is cold and pale and this is acute change in temp gradient . Pedal pulses are non paplable b/l . DM neuropathy b/l No gross Orthopedic abnormalities noted . No clinical signs of infection . Results - Vital Signs Recent Vital Signs: Last Vital Signs Temp 98 F 03/06/17 17:14 Pulse 85 03/06/17 17:14 Resp 16 03/06/17 17:14 BP 156/80 H 03/06/17 17:14 Pulse Ox 98 03/06/17 17:14 - Labs Result Diagrams: 03/06/17 12:05 03/06/17 16:52 Labs: Laboratory Results - last 24 hr 03/06/17 03/06/17 03/06/17 12:05 13:10 13:10 WBC 10.8 RBC 4.45 Hgb 12.6 Hct 38.6 MCV 86.7 MCH 28.3 MCHC 32.6 L RDW 14.2 Plt Count 235 MPV 9.8 Neut % (Auto) 64.7 Lymph % (Auto) 16.2 L [place] % (Auto) 11.6 H Eos % (Auto) 6.7 H Baso % (Auto) 0.8 Neut # 7.0 Lymph # 1.7 [place] # 1.3 H Eos # 0.7 Baso # 0.1 PT INR APTT Sodium 139 Potassium 4.8 Chloride 92 L Carbon Dioxide 29 Anion Gap 23 H BUN 26 H Creatinine 3.6 H Est GFR ( Amer) 15 Est GFR (Non-Af Amer) 12 POC Glucose (mg/dL) Random Glucose 119 H Calcium 9.2 Total Bilirubin 0.6 AST 18 ALT 25 Alkaline Phosphatase 85 Total Protein 7.5 Albumin 3.9 Globulin 3.5 Albumin/Globulin Ratio 1.1 Blood Type O POSITIVE Antibody Screen Negative 03/06/17 03/06/17 03/06/17 16:52 16:52 16:52 WBC RBC Hgb Hct MCV MCH MCHC RDW Plt Count MPV Neut % (Auto) Lymph % (Auto) [place] % (Auto) Eos % (Auto) Baso % (Auto) Neut # Lymph # [place] # Eos # Baso # PT 10.1 INR 0.9 APTT 29 Sodium 137 Potassium 5.1 Chloride 91 L Carbon Dioxide 29 Anion Gap 22 H BUN 27 H Creatinine 3.9 H Est GFR ( Amer) 13 Est GFR (Non-Af Amer) 11 POC Glucose (mg/dL) Random Glucose 143 H Calcium 9.3 Total Bilirubin AST ALT Alkaline Phosphatase Total Protein Albumin Globulin Albumin/Globulin Ratio Blood Type O POSITIVE Antibody Screen 03/06/17 17:01 WBC RBC Hgb Hct MCV MCH MCHC RDW Plt Count MPV Neut % (Auto) Lymph % (Auto) [place] % (Auto) Eos % (Auto) Baso % (Auto) Neut # Lymph # [place] # Eos # Baso # PT INR APTT Sodium Potassium Chloride Carbon Dioxide Anion Gap BUN Creatinine Est GFR ( Amer) Est GFR (Non-Af Amer) POC Glucose (mg/dL) 162 H Random Glucose Calcium Total Bilirubin AST ALT Alkaline Phosphatase Total Protein Albumin Globulin Albumin/Globulin Ratio Blood Type Antibody Screen Assessment & Plan - Assessment and Plan (Free Text) Assessment: A/Ischemic ulcers /Pad b/l / r/o arterial thrombus left Plan: [place] /Bactroban applied topically to affected areas bid . Pt scheduled for vascular management as per Dr Liu .
[2017-03-07] MEDS ORDERED: Heparin25000 units/250ml 1/2NS 25,000 UNITS/250 ML BAG IV PRN ×2 (01:30→18:15)
[2017-03-07] MEDS: Multivitamin Vitamin B Complex (Nephro-Vite) Tab PO SCH (08:17)
[2017-03-07] MEDS: (Novolin R) Insulin Human Regular 100 units/ml vial SC SCH ×3 (08:18→22:26)
[2017-03-07] MEDS: Metoprolol Succinate 25 mg XL Tab PO SCH (09:47)
--- NOTE | 2017-03-07 11:14 | VASCLAB ---
PROCEDURE: Left Lower Extremity Arterial Exam. HISTORY: L occluded fem-pop bypass COMPARISON: None available. TECHNIQUE: Grayscale and duplex Doppler evaluation of the left common femoral, femoral, profunda femoral, popliteal, posterior tibial, anterior tibial and dorsalis pedis arteries was performed. Report prepared by ESPERANZA Hough, RVT FINDINGS: LEFT LOWER EXTREMITY: * Common Femoral Artery: Peak Systolic Velocity - 135: Doppler Waveform: Biphasic: Plaque description - Calcific * Profunda Femoral Artery: Peak Systolic Velocity - 194: Doppler Waveform: Biphasic.: Plaque description - Calcific * Femoral Artery o Proximal Segment: Peak Systolic Velocity - : Doppler Waveform: : Plaque description - o Middle Segment: Peak Systolic Velocity - : Doppler Waveform: : Plaque description - o Distal Segment: Peak Systolic Velocity - : Doppler Waveform: : Plaque description - * Popliteal Artery o Proximal Segment: Peak Systolic Velocity - : Doppler Waveform: Absent: Plaque description - o Middle Segment: Peak Systolic Velocity - 19: Doppler Waveform: Monophasic: Plaque description - Calcific o Distal Segment: Peak Systolic Velocity - 18: Doppler Waveform: Monophasic: Plaque description - Calcific * Posterior Tibial Artery: Peak Systolic Velocity - 0: Doppler Waveform: Absent: Plaque description - Calcific * Anterior Tibial Artery: Peak Systolic Velocity - 0: Doppler Waveform: Absent: Plaque description - Calcific * Dorsalis Pedis Artery: Peak Systolic Velocity - : Doppler Waveform: : Plaque description - OTHER FINDINGS: None. IMPRESSION: LEFT: Occlusion of the left femoral to popliteal bypass graft, anterior and posterior tibial arteries. 30-49% stenosis of the left proximal profunda femoral artery.
[2017-03-07 11:54] LABS: BASO # 0.1 K/uL (0.0-0.2); BASO % 0.9 % (0.0-2.0); EOS # 0.6 K/uL (0.0-0.7); EOS % 3.9 % (0.0-4.0); HEMATOCRIT 40.5 % (34.0-47.0); LYMPH # 1.7 K/uL (1.0-4.3); MEAN CELL VOLUME 87.8 fL (81.0-99.0); MEAN CORPUSCULAR HEMOGLOBIN 27.8 pg (27.0-31.0); MEAN CORPUSCULAR HGB CONC 31.7 g/dL (33.0-37.0); MEAN PLATELET VOLUME 9.9 fL (7.2-11.7); MONO # 1.3 K/uL (0.0-0.8); MONO % 8.8 % (0.0-10.0); RED CELL DISTRIBUTION WIDTH 14.1 % (11.5-14.5)
[2017-03-07 11:59] LABS: INR 0.9
[2017-03-07 12:13] LABS: POTASSIUM 5.4 mmol/L (3.6-5.2)
[2017-03-07 12:15] LABS: ALB/GLOB RATIO 1.1 (1.0-2.1); BILIRUBIN,TOTAL 0.7 mg/dL (0.2-1.3); PHOSPHOROUS 4.3 mg/dL (2.5-4.5); TOTAL PROTEIN 7.5 g/dL (6.3-8.3)
[2017-03-07 12:16] LABS: CALCIUM 9.5 mg/dl (8.6-10.4); MAGNESIUM 2.2 mg/dL (1.6-2.3)
[2017-03-07] MEDS ORDERED: (Novolin R) Insulin Human Regular 100 units/ml vial IV ONE (12:44)
[2017-03-07] MEDS ORDERED: Dextrose 50% SYRINGE Inj (50 ml) IV STA (12:44)
[2017-03-07] MEDS ORDERED: (Novolin R) Insulin Human Regular 100 units/ml vial IV STA (12:46)
[2017-03-07 12:48] LABS: THYROID STIMULATING HORMONE 1.91 mIU/L (0.46-4.68)
[2017-03-07] MEDS ORDERED: DiphenhydrAMINE 50 mg/ml Inj ONE (13:19)
[2017-03-07] MEDS ORDERED: Dextrose 50% SYRINGE Inj (50 ml) ONE (13:21)
[2017-03-07] MEDS ORDERED: Midazolam 2 MG/2 ML VIAL ONE ×2 (14:05→17:28)
[2017-03-07] MEDS ORDERED: (Novolin R) Insulin Human Regular 100 units/ml vial ONE (14:31)
[2017-03-07] MEDS ORDERED: Lidocaine 2% Inj (20ml) ONE (14:38)
[2017-03-07] MEDS ORDERED: Iodixanol 320 MG/ML 200 ML BOTTLE IV ONE ×3 (14:43→17:31)
[2017-03-07] MEDS ORDERED: Propofol 10 mg/ml Inj (20 ML) ONE (14:44)
[2017-03-07] MEDS ORDERED: Labetalol 25mg/5ml Syringe ONE (16:36)
[2017-03-07] MEDS ORDERED: Iodixanol 320 MG/ML 100 ML BOTTLE IV ONE (16:55)
--- NOTE | 2017-03-07 18:13 | PCM.SURG1 ---
Surgeon's Initial Post Op Note - Surgeon's Notes Surgeon: Yang Liu MD Bulldozer Engineer: Mabel Villafuerte PGY-1 Pre-Operative Diagnosis: Peripheral Artery disease Operative Findings: see op report Post-Operative Diagnosis: Peripheral Artery disease Operation Performed: Aortofemoral angiogram with selective catheterization of Left femoral artery. Mechanical thrombolysis of Left occluded graft with TPA and Angiojet. Stents proximal and distal to stent. Balloon angioplasty of Peroneal artery 2.2.5. Perclose of Right groin Specimen/Specimens Removed: None Estimated Blood Loss: EBL {In ML}: 150 Blood Products Given: N/A Drains Used: No Drains Post-Op Condition: Fair Date of Surgery/Procedure: 03/07/17 Time of Surgery/Procedure: 18:13
--- NOTE | 2017-03-07 18:45 | CP.PCM.CON ---
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 Patient has been transferred to the ICU s/p Aortofemoral angiogram with selective catheterization of Left femoral artery. Per operative note patient received mechanical thrombolysis of Left occluded graft with TPA and Angiojet. Stents proximal and distal to stent. Balloon angioplasty of Peroneal artery 2.2.5. Perclose of Right groin. Patient was seen and examined at bedside. Patient is still coming off sedation s/p surgery so could not assess ROS. PMD: Jeremie Cuellar Cardio: Dr. Hughes Nephro: Dr. Cohen Pmhx: CAD, coronary stents x 7, AFib, CHF, COPD, DM, HTN, CKD (dialysis MWF), asthma, arthritis, anxiety Psurg: left leg femoral popliteal artery bypass (2014), 7 stents Fam history: mother had CAD, cirrhosis, otherwise unknown Socialhx: stopped smoking cigarettes 30 years ago Allergies: Ciprofloxacin, Codeine, Sulfa- hives iodine -anaphylaxis Review of Systems - Review of Systems Systems not reviewed;Unavailable: Other (s/p Aortofemoral angiogram with selective catheterization of Left femoral artery - patient is still sedated from anesthesia) Past Patient History - Infectious Disease Hx of Infectious Diseases: None - Tetanus Immunizations Tetanus Immunization: Unknown - Past Medical History & Family History Past Medical History?: Yes - Past Social History Smoking Status: Former Smoker - CARDIAC Hx Atrial Fibrillation: Yes Hx Cardia Arrhythmia: Yes (AFIB) Hx Congestive Heart Failure: Yes Hx Hypertension: Yes Hx Pacemaker: No Hx Peripheral Edema: Yes (ble +1 edema) - PULMONARY Hx Asthma: Yes Hx Chronic Obstructive Pulmonary Disease (COPD): Yes Hx Pneumonia: Yes - NEUROLOGICAL Hx Neurological Disorder: Yes Hx Dizziness: Yes - HEENT Hx HEENT Problems: No - RENAL Hx Chronic Kidney Disease: Yes Hx Kidney Stones: Yes (1975) - ENDOCRINE/METABOLIC Hx Endocrine Disorders: Yes Hx Diabetes Mellitus Type 2: Yes - HEMATOLOGICAL/ONCOLOGICAL Hx Blood Disorders: Yes (blood transfusion) - INTEGUMENTARY Hx Dermatological Problems: Yes Other/Comment: fading red rash to ble from knees to feet and r arm, bright red rash to right hand and arm, right hand/arm rash started today, right great toe right foot 0.2cm round brown dry wound, r 5th toe redness tip is purple due to medication,redness swelling to toes decreasing since yesterday as per family member and pt. small 0.2cm round brown dry wound to outer left great toe redness and swelling to toes improving since yesterday as per family member and pt but still has +1 edema to left foot, hard thick toenails b/l feet, both feet sensitive to touch - MUSCULOSKELETAL/RHEUMATOLOGICAL Hx Arthritis: Yes Hx Fractures: Yes (BRIDGE OF NOSE) - GASTROINTESTINAL Hx Gastrointestinal Disorders: Yes (hemorrhoid) Hx Ulcer: Yes Other/Comment: constipatiion has resolved x 1 yr pt does not take laxatives anymore - GENITOURINARY/GYNECOLOGICAL Hx Genitourinary Disorders: Yes Other/Comment: pt voids every day [place]3 [place] [facility] [place]YCHIATRIC Hx Anxiety: Yes Hx Depression: No Hx Substance Use: No - SURGICAL HISTORY Hx Coronary Stent: Yes (x7) - ANESTHESIA Hx Anesthesia Reactions: No Hx Malignant Hyperthermia: No Meds Allergies/Adverse Reactions: Allergies Allergy/AdvReac Type Severity Reaction Status Date / Time ciprofloxacin Allergy Severe hives Verified 03/06/17 11:09 codeine Allergy Severe hives Verified 03/06/17 11:09 Sulfa (Sulfonamide Allergy Severe HIVES Verified 03/06/17 11:09 Antibiotics) iodine Allergy ANAPHYLAXIS Verified 03/06/17 11:09 - Medications Medications: Current Medications Calcium Acetate (Phoslo) 667 mg PO TIDCC [facility] Last Admin: 03/07/17 12:28 Dose: Not Given Clonidine HCl (Catapres) 0.1 mg PO Q8 [facility] Last Admin: 03/07/17 09:48 Dose: 0.1 mg Clopidogrel Bisulfate (Plavix) 75 mg PO DAILY [facility] Heparin Sodium/Sodium Chloride (Heparin 38938 Units/250ml 1/2 Normal Saline) 25 ,000 units in 250 mls @ 0 mls/hr IV .Q0M PRN; Protocol; Per Protocol PRN Reason: PROTOCOL Insulin Human Regular (Novolin R) 0 unit SC ACHS CHERYL PRN Reason: Protocol Last Admin: 03/07/17 12:28 Dose: Not Given Ipratropium Soquel (Atrovent Hfa) 2 puff IH RQ6 PRN PRN Reason: Shortness of Breath Ketorolac Tromethamine (Toradol) 30 mg IVP Q6 PRN PRN Reason: Pain, moderate (4-7) Last Admin: 03/06/17 19:29 Dose: 30 mg Lisinopril (Zestril) 20 mg PO BID [facility] Last Admin: 03/07/17 09:48 Dose: 20 mg Metoprolol Succinate (Toprol Xl) 25 mg PO BID [facility] Last Admin: 03/07/17 09:47 Dose: 25 mg Mupirocin (Bactroban Ointment) 1 gm TOP BID [facility] Last Admin: 03/07/17 12:28 Dose: Not Given Rosuvastatin Calcium (Crestor) 10 mg PO HS [facility] Last Admin: 03/06/17 22:12 Dose: Not Given Vitamin B Complex/Vit C/Folic Acid (Nephro-Jane) 1 tab PO 0800 [facility] Last Admin: 03/07/17 08:17 Dose: Not Given Physical Exam - Constitutional Appears: Well, No Acute Distress - Head Exam Head Exam: ATRAUMATIC, NORMAL INSPECTION - Eye Exam Eye Exam: EOMI, Normal appearance, PERRL Pupil Exam: NORMAL ACCOMODATION - ENT Exam ENT Exam: Mucous Membranes Moist - Respiratory Exam Respiratory Exam: Wheezes, NORMAL BREATHING PATTERN. absent: Respiratory Distress - Cardiovascular Exam Cardiovascular Exam: REGULAR RHYTHM, RRR, +S1, +S2 - GI/Abdominal Exam GI & Abdominal Exam: Normal Bowel Sounds, Soft - Extremities Exam Extremities exam: Negative for: joint swelling, pedal edema, pedal pulses present - Skin Skin Exam: Dry, Normal Color (bilateral LE cold ) Results - Vital Signs Recent Vital Signs: Last Vital Signs Temp 98.0 F 03/07/17 07:44 Pulse 84 03/07/17 07:44 Resp 20 03/07/17 07:44 BP 180/85 H 03/07/17 07:44 Pulse Ox 97 03/07/17 07:44 - Labs Result Diagrams: 03/07/17 11:45 03/07/17 11:45 Labs: Laboratory Results - last 24 hr 03/06/17 03/06/17 03/06/17 16:52 21:01 23:57 WBC RBC Hgb Hct MCV MCH MCHC RDW Plt Count MPV Neut % (Auto) Lymph % (Auto) [place] % (Auto) Eos % (Auto) Baso % (Auto) Neut # Lymph # [place] # Eos # Baso # PT INR APTT 136 H* D Sodium Potassium Chloride Carbon Dioxide Anion Gap BUN Creatinine Est GFR ( Amer) Est GFR (Non-Af Amer) POC Glucose (mg/dL) 228 H Random Glucose Calcium Phosphorus Magnesium Total Bilirubin AST ALT Alkaline Phosphatase NT-Pro-B Natriuret Pep Total Protein Albumin Globulin Albumin/Globulin Ratio Triglycerides Cholesterol LDL Cholesterol Direct HDL Cholesterol Free T4 TSH 3rd Generation Blood Type O POSITIVE Antibody Screen Positive Antibody Identification Non Specific Antibody Elution Negative ERIKA, Poly Interpret Positive H 03/07/17 03/07/17 03/07/17 07:10 11:24 11:45 WBC 15.0 H RBC 4.61 Hgb 12.8 Hct 40.5 MCV 87.8 MCH 27.8 MCHC 31.7 L RDW 14.1 Plt Count 276 MPV 9.9 Neut % (Auto) 75.4 H Lymph % (Auto) 11.0 L [place] % (Auto) 8.8 Eos % (Auto) 3.9 Baso % (Auto) 0.9 Neut # 11.3 H Lymph # 1.7 [place] # 1.3 H Eos # 0.6 Baso # 0.1 PT INR APTT Sodium Potassium Chloride Carbon Dioxide Anion Gap BUN Creatinine Est GFR ( Amer) Est GFR (Non-Af Amer) POC Glucose (mg/dL) 128 H 106 Random Glucose Calcium Phosphorus Magnesium Total Bilirubin AST ALT Alkaline Phosphatase NT-Pro-B Natriuret Pep Total Protein Albumin Globulin Albumin/Globulin Ratio Triglycerides Cholesterol LDL Cholesterol Direct HDL Cholesterol Free T4 TSH 3rd Generation Blood Type Antibody Screen Antibody Identification Elution ERIKA, Poly Interpret 03/07/17 03/07/17 03/07/17 11:45 11:45 11:45 WBC RBC Hgb Hct MCV MCH MCHC RDW Plt Count MPV Neut % (Auto) Lymph % (Auto) [place] % (Auto) Eos % (Auto) Baso % (Auto) Neut # Lymph # [place] # Eos # Baso # PT 10.2 INR 0.9 APTT 32 D Sodium 136 Potassium 5.4 H Chloride 89 L Carbon Dioxide 29 Anion Gap 23 H BUN 44 H Creatinine 5.0 H Est GFR ( Amer) 10 Est GFR (Non-Af Amer) 8 POC Glucose (mg/dL) Random Glucose 103 Calcium 9.5 Phosphorus 4.3 Magnesium 2.2 Total Bilirubin 0.7 AST 18 ALT 18 Alkaline Phosphatase 85 NT-Pro-B Natriuret Pep 11396 H Total Protein 7.5 Albumin 4.0 Globulin 3.5 Albumin/Globulin Ratio 1.1 Triglycerides 136 Cholesterol 171 LDL Cholesterol Direct 98 HDL Cholesterol 43 Free T4 1.30 TSH 3rd Generation 1.91 Blood Type Antibody Screen Antibody Identification Elution ERIKA, Poly Interpret 03/07/17 03/07/17 14:00 18:28 WBC RBC Hgb Hct MCV MCH MCHC RDW Plt Count MPV Neut % (Auto) Lymph % (Auto) [place] % (Auto) Eos % (Auto) Baso % (Auto) Neut # Lymph # [place] # Eos # Baso # PT INR APTT Sodium Potassium Chloride Carbon Dioxide Anion Gap BUN Creatinine Est GFR ( Amer) Est GFR (Non-Af Amer) POC Glucose (mg/dL) 204 H 207 H Random Glucose Calcium Phosphorus Magnesium Total Bilirubin AST ALT Alkaline Phosphatase NT-Pro-B Natriuret Pep Total Protein Albumin Globulin Albumin/Globulin Ratio Triglycerides Cholesterol LDL Cholesterol Direct HDL Cholesterol Free T4 TSH 3rd Generation Blood Type Antibody Screen Antibody Identification Elution ERIKA, Poly Interpret Assessment & Plan (1) Peripheral vascular disease Assessment and Plan: Patient has been transferred to the ICU s/p Aortofemoral angiogram with selective catheterization of Left femoral artery. Neuro: Sedated s/p anesthesia Pulm: Hx COPD, Asthma CV: vitals stable, HR controlled metoprolol as above Echo (01/2017) - EF estimated to be 55% Dr. Liu (surgery) consulted, help appreciated Heparin drip restarted PT, PTT, INR Heme: Monitor End: accuchecks ACHS ISS -- low GI: Diabetic Consistent Diet Renal: Dr. Cohen, consulted, help appreciated * Hemodialysis MWF MSK: right 5th toe DIP: unstageable ulcer .8cm, black/purple in color due to medication right 1st toe DIP: .5 cm ulcer left 1st toe DIP: .5cm ulcer * ulcers dry, no purulence, no malodor Dr. Cuadra, podiatry following ulcers outpatient Dr. Cuadra consulted, help appreciated DVT proph - SCDs contraindicated, heparin drip GI Proph: Pepcid 20mg IVP Daily Code Status: DNI Case discussed with Dr. Chuy Cárdenas PGY-1 Status: Acute <Levon Vera - Last Filed: 03/07/17 18:56> Meds - Medications Medications: Current Medications Calcium Acetate (Phoslo) 667 mg PO TIDCC [facility] Last Admin: 03/07/17 12:28 Dose: Not Given Clonidine HCl (Catapres) 0.1 mg PO Q8 [facility] Last Admin: 03/07/17 09:48 Dose: 0.1 mg Clopidogrel Bisulfate (Plavix) 75 mg PO DAILY [facility] Heparin Sodium/Sodium Chloride (Heparin 25341 Units/250ml 1/2 Normal Saline) 25 ,000 units in 250 mls @ 0 mls/hr IV .Q0M PRN; Protocol; Per Protocol PRN Reason: PROTOCOL Insulin Human Regular (Novolin R) 0 unit SC ACHS [facility] PRN Reason: Protocol Last Admin: 03/07/17 12:28 Dose: Not Given Ipratropium Soquel (Atrovent Hfa) 2 puff IH RQ6 PRN PRN Reason: Shortness of Breath Ketorolac Tromethamine (Toradol) 30 mg IVP Q6 PRN PRN Reason: Pain, moderate (4-7) Last Admin: 03/06/17 19:29 Dose: 30 mg Lisinopril (Zestril) 20 mg PO BID [facility] Last Admin: 03/07/17 09:48 Dose: 20 mg Metoprolol Succinate (Toprol Xl) 25 mg PO BID [facility] Last Admin: 03/07/17 09:47 Dose: 25 mg Mupirocin (Bactroban Ointment) 1 gm TOP BID [facility] Last Admin: 03/07/17 12:28 Dose: Not Given Rosuvastatin Calcium (Crestor) 10 mg PO HS [facility] Last Admin: 03/06/17 22:12 Dose: Not Given Vitamin B Complex/Vit C/Folic Acid (Nephro-Jane) 1 tab PO 0800 [facility] Last Admin: 03/07/17 08:17 Dose: Not Given Results - Vital Signs Recent Vital Signs: Last Vital Signs Temp 98.0 F 03/07/17 07:44 Pulse 84 03/07/17 07:44 Resp 20 03/07/17 07:44 BP 180/85 H 03/07/17 07:44 Pulse Ox 97 03/07/17 07:44 - Labs Result Diagrams: 03/07/17 11:45 03/07/17 11:45 Labs: Laboratory Results - last 24 hr 03/06/17 03/06/17 03/06/17 16:52 21:01 23:57 WBC RBC Hgb Hct MCV MCH MCHC RDW Plt Count MPV Neut % (Auto) Lymph % (Auto) [place] % (Auto) Eos % (Auto) Baso % (Auto) Neut # Lymph # [place] # Eos # Baso # PT INR APTT 136 H* D Sodium Potassium Chloride Carbon Dioxide Anion Gap BUN Creatinine Est GFR ( Amer) Est GFR (Non-Af Amer) POC Glucose (mg/dL) 228 H Random Glucose Calcium Phosphorus Magnesium Total Bilirubin AST ALT Alkaline Phosphatase NT-Pro-B Natriuret Pep Total Protein Albumin Globulin Albumin/Globulin Ratio Triglycerides Cholesterol LDL Cholesterol Direct HDL Cholesterol Free T4 TSH 3rd Generation Blood Type O POSITIVE Antibody Screen Positive Antibody Identification Non Specific Antibody Elution Negative ERIKA, Poly Interpret Positive H 03/07/17 03/07/17 03/07/17 07:10 11:24 11:45 WBC 15.0 H RBC 4.61 Hgb 12.8 Hct 40.5 MCV 87.8 MCH 27.8 MCHC 31.7 L RDW 14.1 Plt Count 276 MPV 9.9 Neut % (Auto) 75.4 H Lymph % (Auto) 11.0 L [place] % (Auto) 8.8 Eos % (Auto) 3.9 Baso % (Auto) 0.9 Neut # 11.3 H Lymph # 1.7 [place] # 1.3 H Eos # 0.6 Baso # 0.1 PT INR APTT Sodium Potassium Chloride Carbon Dioxide Anion Gap BUN Creatinine Est GFR ( Amer) Est GFR (Non-Af Amer) POC Glucose (mg/dL) 128 H 106 Random Glucose Calcium Phosphorus Magnesium Total Bilirubin AST ALT Alkaline Phosphatase NT-Pro-B Natriuret Pep Total Protein Albumin Globulin Albumin/Globulin Ratio Triglycerides Cholesterol LDL Cholesterol Direct HDL Cholesterol Free T4 TSH 3rd Generation Blood Type Antibody Screen Antibody Identification Elution ERIKA, Poly Interpret 03/07/17 03/07/17 03/07/17 11:45 11:45 11:45 WBC RBC Hgb Hct MCV MCH MCHC RDW Plt Count MPV Neut % (Auto) Lymph % (Auto) [place] % (Auto) Eos % (Auto) Baso % (Auto) Neut # Lymph # [place] # Eos # Baso # PT 10.2 INR 0.9 APTT 32 D Sodium 136 Potassium 5.4 H Chloride 89 L Carbon Dioxide 29 Anion Gap 23 H BUN 44 H Creatinine 5.0 H Est GFR ( Amer) 10 Est GFR (Non-Af Amer) 8 POC Glucose (mg/dL) Random Glucose 103 Calcium 9.5 Phosphorus 4.3 Magnesium 2.2 Total Bilirubin 0.7 AST 18 ALT 18 Alkaline Phosphatase 85 NT-Pro-B Natriuret Pep 97845 H Total Protein 7.5 Albumin 4.0 Globulin 3.5 Albumin/Globulin Ratio 1.1 Triglycerides 136 Cholesterol 171 LDL Cholesterol Direct 98 HDL Cholesterol 43 Free T4 1.30 TSH 3rd Generation 1.91 Blood Type Antibody Screen Antibody Identification Elution ERIKA, Poly Interpret 03/07/17 03/07/17 14:00 18:28 WBC RBC Hgb Hct MCV MCH MCHC RDW Plt Count MPV Neut % (Auto) Lymph % (Auto) [place] % (Auto) Eos % (Auto) Baso % (Auto) Neut # Lymph # [place] # Eos # Baso # PT INR APTT Sodium Potassium Chloride Carbon Dioxide Anion Gap BUN Creatinine Est GFR ( Amer) Est GFR (Non-Af Amer) POC Glucose (mg/dL) 204 H 207 H Random Glucose Calcium Phosphorus Magnesium Total Bilirubin AST ALT Alkaline Phosphatase NT-Pro-B Natriuret Pep Total Protein Albumin Globulin Albumin/Globulin Ratio Triglycerides Cholesterol LDL Cholesterol Direct HDL Cholesterol Free T4 TSH 3rd Generation Blood Type Antibody Screen Antibody Identification Elution ERIKA, Poly Interpret Attending/Attestation - Attestation I have personally seen and examined this patient.: Yes I have fully participated in the care of the patient.: Yes I have reviewed all pertinent clinical information: Yes Notes (Text): 03/07/17 18:55 I have seen and examined the patient. Medical records, lab studies, and imaging were reviewed by me and a management plan was formulated on multidisciplinary rounds with resident Dr. Cárdenas. I agree with their above documented assessment and plan. Patient admitted for post-op monitoring s/p intra-arterial mechanical thrombolysis and tpa administration. Pulse checks and bleeding monitoring. Patient currently clinically stable. Critical Care Time 35 minutes. Multi-disciplinary rounds were performed with house staff, nursing, speech therapy, respiratory therapy, pharmacy and nutrition with integrated input from the primary team/attending and other consulting services. The documented time is cumulative and includes review of patient data/exams/labs/chart review and examination of the patient on rounds and throughout the day; time is exclusive of any procedures or teaching time. 03/07/17 18:56
--- NOTE | 2017-03-07 18:46 | CP.PCM.CON ---
History of Present Illness - History of Present Illness History of Present Illness: 86 yo F w/ pmh of DM, HTN, CAD s/p stents, PAD s/p left femoral popliteal artery bypass (2014), AFib, CHF, COPD and ESRD on HD (MWF at [facility], under [facility]), was found to have occluded L fem-pop bypass graft yesterday, and underwent thrombolysis and stent placement earlier today; nephrology service being consulted for ESRD/HD care; Patient reports feeling pain in left lower leg with associated coolness since past 1 week; she was seen in HD center yesterday and found to have cold L lower leg with non-palpable distal pulse and bluish discoloration of first 3 toes; patient was advised to go to ED at [facility] for further evaluation by her vascular surgeon with subsequent finding of the occluded bypass graft; Patient otherwise has been undergoing routine HD uneventfully; her weight gains have been stable; BP has been intermittently high and patient uses clonidine prn ; Review of Systems - Constitutional Constitutional: absent: Chills, Fever - EENT Eyes: absent: Change in Vision - Cardiovascular Cardiovascular: absent: Chest Pain - Respiratory Respiratory: Excessive Mucous Production. absent: Dyspnea - Gastrointestinal Gastrointestinal: absent: Diarrhea, Nausea, Vomiting - Genitourinary Additional comments: scant urination; - Musculoskeletal Additional comments: L leg pain; - Integumentary Additional comments: Healed ulcer over bilateral halluces; - Neurological Neurological: absent: Confusion, Dizziness - Psychiatric Psychiatric: absent: Anxiety, Depression - Hematologic/Lymphatic Hematologic: absent: Easy Bleeding, Easy Bruising Past Patient History - Infectious Disease Hx of Infectious Diseases: None - Tetanus Immunizations Tetanus Immunization: Unknown - Past Medical History & Family History Past Medical History?: Yes Pertinent Family History: Mother - CAD - Past Social History Smoking Status: Former Smoker - CARDIAC Hx Atrial Fibrillation: Yes Hx Cardia Arrhythmia: Yes (AFIB) Hx Congestive Heart Failure: Yes Hx Hypertension: Yes Hx Pacemaker: No Hx Peripheral Edema: Yes (ble +1 edema) - PULMONARY Hx Asthma: Yes Hx Chronic Obstructive Pulmonary Disease (COPD): Yes Hx Pneumonia: Yes - NEUROLOGICAL Hx Neurological Disorder: Yes Hx Dizziness: Yes - HEENT Hx HEENT Problems: No - RENAL Hx Chronic Kidney Disease: Yes Hx Kidney Stones: Yes (1975) - ENDOCRINE/METABOLIC Hx Endocrine Disorders: Yes Hx Diabetes Mellitus Type 2: Yes - HEMATOLOGICAL/ONCOLOGICAL Hx Blood Disorders: Yes (blood transfusion) - INTEGUMENTARY Hx Dermatological Problems: Yes Other/Comment: fading red rash to ble from knees to feet and r arm, bright red rash to right hand and arm, right hand/arm rash started today, right great toe right foot 0.2cm round brown dry wound, r 5th toe redness tip is purple due to medication,redness swelling to toes decreasing since yesterday as per family member and pt. small 0.2cm round brown dry wound to outer left great toe redness and swelling to toes improving since yesterday as per family member and pt but still has +1 edema to left foot, hard thick toenails b/l feet, both feet sensitive to touch - MUSCULOSKELETAL/RHEUMATOLOGICAL Hx Arthritis: Yes Hx Fractures: Yes (BRIDGE OF NOSE) - GASTROINTESTINAL Hx Gastrointestinal Disorders: Yes (hemorrhoid) Hx Ulcer: Yes Other/Comment: constipatiion has resolved x 1 yr pt does not take laxatives anymore - GENITOURINARY/GYNECOLOGICAL Hx Genitourinary Disorders: Yes Other/Comment: pt voids every day x3 dialysis m/w/f at [facility] [place] - PSYCHIATRIC Hx Anxiety: Yes Hx Depression: No Hx Substance Use: No - SURGICAL HISTORY Hx Coronary Stent: Yes (x7) - ANESTHESIA Hx Anesthesia Reactions: No Hx Malignant Hyperthermia: No Meds Allergies/Adverse Reactions: Allergies Allergy/AdvReac Type Severity Reaction Status Date / Time ciprofloxacin Allergy Severe hives Verified 03/06/17 11:09 codeine Allergy Severe hives Verified 03/06/17 11:09 Sulfa (Sulfonamide Allergy Severe HIVES Verified 03/06/17 11:09 Antibiotics) iodine Allergy ANAPHYLAXIS Verified 03/06/17 11:09 - Medications Medications: Current Medications Calcium Acetate (Phoslo) 667 mg PO TIDCC [facility] Last Admin: 03/07/17 12:28 Dose: Not Given Clonidine HCl (Catapres) 0.1 mg PO Q8 [facility] Last Admin: 03/07/17 09:48 Dose: 0.1 mg Clopidogrel Bisulfate (Plavix) 75 mg PO DAILY [facility] Heparin Sodium/Sodium Chloride (Heparin 59664 Units/250ml 1/2 Normal Saline) 25 ,000 units in 250 mls @ 0 mls/hr IV .Q0M PRN; Protocol; Per Protocol PRN Reason: PROTOCOL Insulin Human Regular (Novolin R) 0 unit SC ACHS [facility] PRN Reason: Protocol Last Admin: 03/07/17 12:28 Dose: Not Given Ipratropium [place] (Atrovent Hfa) 2 puff IH RQ6 PRN PRN Reason: Shortness of Breath Ketorolac Tromethamine (Toradol) 30 mg IVP Q6 PRN PRN Reason: Pain, moderate (4-7) Last Admin: 03/06/17 19:29 Dose: 30 mg Lisinopril (Zestril) 20 mg PO BID [facility] Last Admin: 03/07/17 09:48 Dose: 20 mg Metoprolol Succinate (Toprol Xl) 25 mg PO BID [facility] Last Admin: 03/07/17 09:47 Dose: 25 mg Mupirocin (Bactroban Ointment) 1 gm TOP BID [facility] Last Admin: 03/07/17 12:28 Dose: Not Given Rosuvastatin Calcium (Crestor) 10 mg PO HS [facility] Last Admin: 03/06/17 22:12 Dose: Not Given Vitamin B Complex/Vit C/Folic Acid (Nephro-Jane) 1 tab PO 0800 [facility] Last Admin: 03/07/17 08:17 Dose: Not Given Physical Exam - Constitutional Additional comments: In mild distress; - Eye Exam Eye Exam: Normal appearance. absent: Scleral icterus - ENT Exam ENT Exam: Mucous Membranes Moist - Respiratory Exam Respiratory Exam: Clear to Auscultation Bilateral, NORMAL BREATHING PATTERN - Cardiovascular Exam Cardiovascular Exam: REGULAR RHYTHM, +S1, +S2 - GI/Abdominal Exam GI & Abdominal Exam: Soft. absent: Distended - Extremities Exam Additional comments: Left leg tenderness; - Neurological Exam Neurological exam: Alert, Oriented x3 - Psychiatric Exam Psychiatric exam: Normal Affect - Skin Skin Exam: Normal Color, Warm Results - Vital Signs Recent Vital Signs: Last Vital Signs Temp 98.0 F 03/07/17 07:44 Pulse 84 03/07/17 07:44 Resp 20 03/07/17 07:44 BP 180/85 H 03/07/17 07:44 Pulse Ox 97 03/07/17 07:44 - Labs Result Diagrams: 03/07/17 18:16 03/07/17 11:45 Labs: Laboratory Results - last 24 hr 03/06/17 03/06/17 03/06/17 16:52 21:01 23:57 WBC RBC Hgb Hct MCV MCH MCHC RDW Plt Count MPV Neut % (Auto) Lymph % (Auto) Karnes % (Auto) Eos % (Auto) Baso % (Auto) Neut # Lymph # Karnes # Eos # Baso # PT INR APTT 136 H* D Sodium Potassium Chloride Carbon Dioxide Anion Gap BUN Creatinine Est GFR ( Amer) Est GFR (Non-Af Amer) POC Glucose (mg/dL) 228 H Random Glucose Calcium Phosphorus Magnesium Total Bilirubin AST ALT Alkaline Phosphatase NT-Pro-B Natriuret Pep Total Protein Albumin Globulin Albumin/Globulin Ratio Triglycerides Cholesterol LDL Cholesterol Direct HDL Cholesterol Free T4 TSH 3rd Generation Blood Type O POSITIVE Antibody Screen Positive Antibody Identification Non Specific Antibody Elution Negative ERIKA, Poly Interpret Positive H 03/07/17 03/07/17 03/07/17 07:10 11:24 11:45 WBC 15.0 H RBC 4.61 Hgb 12.8 Hct 40.5 MCV 87.8 MCH 27.8 MCHC 31.7 L RDW 14.1 Plt Count 276 MPV 9.9 Neut % (Auto) 75.4 H Lymph % (Auto) 11.0 L Karnes % (Auto) 8.8 Eos % (Auto) 3.9 Baso % (Auto) 0.9 Neut # 11.3 H Lymph # 1.7 Karnes # 1.3 H Eos # 0.6 Baso # 0.1 PT INR APTT Sodium Potassium Chloride Carbon Dioxide Anion Gap BUN Creatinine Est GFR ( Amer) Est GFR (Non-Af Amer) POC Glucose (mg/dL) 128 H 106 Random Glucose Calcium Phosphorus Magnesium Total Bilirubin AST ALT Alkaline Phosphatase NT-Pro-B Natriuret Pep Total Protein Albumin Globulin Albumin/Globulin Ratio Triglycerides Cholesterol LDL Cholesterol Direct HDL Cholesterol Free T4 TSH 3rd Generation Blood Type Antibody Screen Antibody Identification Elution ERIKA, Poly Interpret 03/07/17 03/07/17 03/07/17 11:45 11:45 11:45 WBC RBC Hgb Hct MCV MCH MCHC RDW Plt Count MPV Neut % (Auto) Lymph % (Auto) Karnes % (Auto) Eos % (Auto) Baso % (Auto) Neut # Lymph # Karnes # Eos # Baso # PT 10.2 INR 0.9 APTT 32 D Sodium 136 Potassium 5.4 H Chloride 89 L Carbon Dioxide 29 Anion Gap 23 H BUN 44 H Creatinine 5.0 H Est GFR ( Amer) 10 Est GFR (Non-Af Amer) 8 POC Glucose (mg/dL) Random Glucose 103 Calcium 9.5 Phosphorus 4.3 Magnesium 2.2 Total Bilirubin 0.7 AST 18 ALT 18 Alkaline Phosphatase 85 NT-Pro-B Natriuret Pep 54303 H Total Protein 7.5 Albumin 4.0 Globulin 3.5 Albumin/Globulin Ratio 1.1 Triglycerides 136 Cholesterol 171 LDL Cholesterol Direct 98 HDL Cholesterol 43 Free T4 1.30 TSH 3rd Generation 1.91 Blood Type Antibody Screen Antibody Identification Elution ERIKA, Poly Interpret 03/07/17 03/07/17 14:00 18:28 WBC RBC Hgb Hct MCV MCH MCHC RDW Plt Count MPV Neut % (Auto) Lymph % (Auto) Karnes % (Auto) Eos % (Auto) Baso % (Auto) Neut # Lymph # Karnes # Eos # Baso # PT INR APTT Sodium Potassium Chloride Carbon Dioxide Anion Gap BUN Creatinine Est GFR ( Amer) Est GFR (Non-Af Amer) POC Glucose (mg/dL) 204 H 207 H Random Glucose Calcium Phosphorus Magnesium Total Bilirubin AST ALT Alkaline Phosphatase NT-Pro-B Natriuret Pep Total Protein Albumin Globulin Albumin/Globulin Ratio Triglycerides Cholesterol LDL Cholesterol Direct HDL Cholesterol Free T4 TSH 3rd Generation Blood Type Antibody Screen Antibody Identification Elution ERIKA, Poly Interpret - Imaging and Cardiology Chest x-ray Status: Image reviewed by me Additional comment: CXR clear; Assessment & Plan (1) ESRD on hemodialysis Assessment and Plan: Mild hyperkalemia treated medically earlier today; stable volume status; next HD tomorrow morning per routine; will use 1K dialysate for first hour if K>6.0; 1.5L UF; no urgent indication for HD tonight; Status: Chronic (2) Hypertensive kidney disease with ESRD (end-stage renal disease) Assessment and Plan: BP elevated but in setting of severe pain; on lisinopril 20 mg daily, metoprolol XL 25 mg daily and clonidine 0.1 mg q8h, continue same; ensure adequate pain control with IV dilaudid and ketorolac prn; will benefit from UF on HD tomorrow; Status: Acute (3) Anemia in ESRD (end-stage renal disease) Assessment and Plan: Hgb around goal for ESRD (10-11 g); will continue with aranesp as outpatient per protocol; Status: Acute (4) Chronic kidney disease-mineral and bone disorder Assessment and Plan: Phos controlled; continue phoslo 1 tab tid w/ meals; Status: Acute (5) Peripheral vascular disease Assessment and Plan: Acute occlusion of fem-pop bypass, now s/p thrombolysis and stenting; will be careful to avoid dropping SBP < 130 on HD tomorrow; Status: Acute
[2017-03-07 19:19] LABS: BASO % 0.1 % (0.0-2.0); EOS # 0.1 K/uL (0.0-0.7); EOS % 0.5 % (0.0-4.0); HEMATOCRIT 36.8 % (34.0-47.0); LYMPH # 0.8 K/uL (1.0-4.3); MEAN CELL VOLUME 88.3 fL (81.0-99.0); MEAN CORPUSCULAR HEMOGLOBIN 28.4 pg (27.0-31.0); MEAN CORPUSCULAR HGB CONC 32.2 g/dL (33.0-37.0); MONO # 0.2 K/uL (0.0-0.8); MONO % 1.1 % (0.0-10.0); PLATELET COUNT 220 K/uL (130-400); RED CELL DISTRIBUTION WIDTH 14.8 % (11.5-14.5); WHITE BLOOD COUNT 20.5 K/uL (4.8-10.8)
[2017-03-07] MEDS ORDERED: HYDROmorphone 1 mg/ml ISec IVP PRN (19:47)
[2017-03-07] MEDS: Acetaminophen IV 1,000 MG in Premixed IV 1 EA IV PRN (20:24)
[2017-03-07 20:50] LABS: NEUTROPHIL 96 % (50-75); TOTAL CELLS COUNTED 100
[2017-03-07 23:40] LABS: ALB/GLOB RATIO 1.1 (1.0-2.1); CALCIUM 8.8 mg/dl (8.6-10.4); TOTAL PROTEIN 6.8 g/dL (6.3-8.3)
[2017-03-07] MEDS ORDERED: Sod Polystyrene Sulf 15 gm/60 ml Oral Susp PO ONE (23:54)
[2017-03-08] MEDS ORDERED: Albuterol 0.083% Inhal Sol (2.5 mg/3 mL) UD INH ONE
[2017-03-08] MEDS ORDERED: Calcium Gluconate 4.65 mEq/10 ml Inj IVP ONE ×2 (00:29→08:49)
[2017-03-08] MEDS ORDERED: HYDROmorphone 1 mg/ml ISec IVP PRN ×2 (00:33→11:48)
[2017-03-08] MEDS ORDERED: (Novolin R) Insulin Human Regular 100 units/ml vial IV STA (00:38)
[2017-03-08] MEDS: Acetaminophen IV 1,000 MG in Premixed IV 1 EA IV PRN (00:40)
[2017-03-08 03:13] VITALS: O2SAT 100
[2017-03-08 06:11] LABS: BASO % 0.1 % (0.0-2.0); HEMATOCRIT 38.8 % (34.0-47.0); LYMPH # 0.9 K/uL (1.0-4.3); LYMPH % 2.6 % (20.0-40.0); MEAN CELL VOLUME 89.6 fL (81.0-99.0); MEAN CORPUSCULAR HEMOGLOBIN 27.8 pg (27.0-31.0); MEAN CORPUSCULAR HGB CONC 31.1 g/dL (33.0-37.0); MEAN PLATELET VOLUME 10.9 fL (7.2-11.7); MONO # 1.8 K/uL (0.0-0.8); MONO % 5.5 % (0.0-10.0); PLATELET COUNT 294 K/uL (130-400); RED CELL DISTRIBUTION WIDTH 14.2 % (11.5-14.5); WHITE BLOOD COUNT 33.7 K/uL (4.8-10.8)
[2017-03-08 06:23] LABS: ALB/GLOB RATIO 1.1 (1.0-2.1); BILIRUBIN,TOTAL 0.9 mg/dL (0.2-1.3); CALCIUM 9.2 mg/dl (8.6-10.4); TOTAL PROTEIN 7.5 g/dL (6.3-8.3)
[2017-03-08] MEDS ORDERED: Calcium Gluconate 4.65 mEq/10 ml Inj IVP STA (07:09)
--- NOTE | 2017-03-08 07:53 | CP.PCM.PN ---
Subjective - Date & Time of Evaluation Date of Evaluation: 03/08/17 Time of Evaluation: 07:51 - Subjective Subjective: foot remains ischemic few options remain discussed amputation with daughter as inevitable end Rx Objective - Vital Signs/Intake and Output Vital Signs (last 24 hours): Temp Pulse Resp BP Pulse Ox 97 F L 86 11 L 168/63 H 100 03/07/17 20:04 03/08/17 03:11 03/08/17 03:11 03/08/17 03:11 03/08/17 03:11 Intake and Output: 03/08/17 03/08/17 06:59 18:59 Intake Total 327.2 Output Total 0 Balance 327.2 - Medications Medications: Current Medications Calcium Acetate (Phoslo) 667 mg PO TIDCC [facility] Last Admin: 03/07/17 12:28 Dose: Not Given Clonidine HCl (Catapres) 0.1 mg PO Q8 [facility] Last Admin: 03/07/17 22:40 Dose: Not Given Clopidogrel Bisulfate (Plavix) 75 mg PO DAILY [facility] Famotidine (Pepcid) 20 mg IVP DAILY [facility] Hydromorphone HCl (Dilaudid) 2 mg IVP Q4H PRN PRN Reason: Pain, severe (8-10) Hydromorphone HCl (Dilaudid) 0.5 mg IVP Q4H PRN PRN Reason: Pain, moderate (4-7) Last Admin: 03/08/17 01:19 Dose: 0.5 mg Heparin Sodium/Sodium Chloride (Heparin 13167 Units/250ml 1/2 Normal Saline) 25 ,000 units in 250 mls @ 11.226 mls/hr IV .[id number] PRN; Protocol; 15 UNITS/KG/HR PRN Reason: PROTOCOL Last Admin: 03/07/17 22:36 Dose: 15 units/kg/hr, 11.226 mls/hr Acetaminophen 1,000 mg/ (Miscellaneous) 100 mls @ 400 mls/hr IV Q6 PRN Stop: 03/08/17 19:56 Last Admin: 03/08/17 00:40 Dose: 400 mls/hr Insulin Human Regular (Novolin R) 0 unit SC ACHS [facility] PRN Reason: Protocol Last Admin: 03/07/17 22:26 Dose: Not Given Ipratropium [place] (Atrovent Hfa) 2 puff IH RQ6 PRN PRN Reason: Shortness of Breath Ketorolac Tromethamine (Toradol) 15 mg IVP Q6 PRN PRN Reason: Pain, severe (8-10) Lisinopril (Zestril) 20 mg PO BID [facility] Last Admin: 03/07/17 09:48 Dose: 20 mg Metoprolol Succinate (Toprol Xl) 25 mg PO BID [facility] Last Admin: 03/07/17 09:47 Dose: 25 mg Mupirocin (Bactroban Ointment) 1 gm TOP BID [facility] Last Admin: 03/07/17 12:28 Dose: Not Given Rosuvastatin Calcium (Crestor) 10 mg PO HS [facility] Last Admin: 03/07/17 22:40 Dose: Not Given Vitamin B Complex/Vit C/Folic Acid (Nephro-Jane) 1 tab PO 0800 [facility] Last Admin: 03/07/17 08:17 Dose: Not Given - Labs Labs: 03/08/17 05:59 03/08/17 05:59 PT 10.2 SECONDS (9.7-12.2) 03/07/17 11:45 INR 0.9 03/07/17 11:45 APTT 32 SECONDS (21-34) D 03/07/17 11:45
--- NOTE | 2017-03-08 07:56 | CARD ---
APPROVED REPORT EKG Measurement Heart [id number] <Conclusion> Sinus rhythm with 1st degree AV block Nonspecific ST and T wave abnormality Abnormal ECG
[2017-03-08 08:26] LABS: NEUTROPHIL 92 % (50-75); TOTAL CELLS COUNTED 100
--- NOTE | 2017-03-08 08:34 | CP.PCM.PN ---
Subjective - Date & Time of Evaluation Date of Evaluation: 03/07/17 Time of Evaluation: 08:05 - Subjective Subjective: Hospitalist Progress Note (Patient was seen and examined at 8:05 AM 03/07/17 ICU Bed 16) Patient is a 86 year old female with PMH of CAD, coronary stents x 7, AFib, CHF , COPD, DM, HTN, CKD (dialysis MWF), asthma, arthritis, anxiety, left leg femoral popliteal artery bypass (2014), was admitted on 03/05/17 for Left AortoFemoral Angiogram with TPA administration. She underwent this procedure by Vascular Surgeon Dr. Yang Liu on 03/06/17. Currently upon FULL ROS: Severe lower left leg pain NO other complaints Physical Exam - Constitutional Appears: Very uncomfortable, repeating "Please help me" - Head Exam Head Exam: ATRAUMATIC, NORMAL INSPECTION, NORMOCEPHALIC - Eye Exam Eye Exam: EOMI, Normal appearance, PERRL - ENT Exam ENT Exam: Mucous Membranes Moist, Normal Exam - Neck Exam Neck exam: Positive for: Full Rom, Normal Inspection - Respiratory Exam Respiratory Exam: Rales, NORMAL BREATHING PATTERN Additional comments: Faint Bibasilar Inspiratory Rales - Cardiovascular Exam Cardiovascular Exam: Irregularly Irregular - GI/Abdominal Exam GI & Abdominal Exam: Normal Bowel Sounds, Soft. absent: Distended, Firm, Guarding - Extremities Exam Extremities exam: Positive for: calf tenderness. Negative for: pedal edema Additional comments: left foot cold to the touch capillary refill <2 seconds left toes slightly cyanotic right 5th toe dip: unstageable ulcer .8cm right 1st toe dip: .5 cm ulcer left 1st toe dip: .5cm ulcer ulcers dry, no purulence, no malodor - Back Exam Back exam: NORMAL INSPECTION. - Neurological Exam Neurological exam: CN II through XII grossly intact - Psychiatric Exam Psychiatric exam: In severe pain - Skin Additional comments: left foot cold to the touch, cyanotic toes right 5th toe dip: unstageable ulcer .8cm right 1st toe dip: .5 cm ulcer left 1st toe dip: .5cm ulcer ulcers dry, no purulence, no malodor Assessment & Plan - Assessment and Plan (Free Text) Assessment: 1. Peripheral Vascular Disease She is S/P Left Aortofemoral Angiogram with selective catheterization of Left Femoral Artery, Mechanical thrombolysis of left occluded graft with TPA and Angiojet, stent placement, balloon angioplasty of peroneal artery on 03/06/17 Dr. Liu (surgery) Heparin drip restarted after procedure on 03/06/17 Extensive conversation with Daughter this morning concerning pain management for this patient as well as custodial goals as Dr. Liu informed Daughter/ Patient that he did not feel that the procedure was a success and that the next step would likely be amputation of extremity. Daughter explained to me that patient has expressed in the past that she does not want this done. I will reach out to Dr. Liu later today. Daughter is in the process of selling patient's home (that has 19 stairs) today and is planning on having patient move in with her. 2. CAD s/p 7 stents Cardio: Dr. Hughes, consulted, andpatient was cleared for procedure by Dr. Chatterjee who was covering for Dr. Hughes whom the patient sees as an outpatient. Metoprolol 25 mg PO BID hold if systolic <100, HR <60 3. Foot ulcers right 5th toe DIP: unstageable ulcer .8cm, black/purple in color due to medication right 1st toe DIP: .5 cm ulcer left 1st toe DIP: .5cm ulcer * ulcers dry, no purulence, no malodor Podiatry Dr. Cuadra (with whom the patient follows up with as an outpatient) recommended Bactroban 4. CHF Echo (01/2017) - EF estimated to be 55% ekg: NSR with first degree block (unchanged from 01/26) Crestor 10 mg Fluid Restriction to 24 ounces a day 5. HTN Elevated overnight 03/06/17 into 03/07/17 likely secondary to pain Metoprolol 25 mg PO BID hold if systolic <100, HR <60 Lisinopril 20 mg PO BID Clonidine .1mg for systolic >160 6. DM type 2 Holding home medication of Prandin for now accuchecks ACHS ISS -- low dose 7. ESRD Dr. Cohen, consulted, help appreciated * physician is aware Hemodialysis MWF at [facility] through Left Arm AV Fistula as an outpatient Phoslo 667 mg PO TID 8. COPD, Asthma Ipratropium 2 puff IH q6h PRN 9. Hx Afib HR controlled, no need for telemetry Metoprolol as above Aspirin held because heparin drip started 10. Hx Anxiety Ativan 0.5 mg IV Q6H PRN Anxiety (uses Xanax at home as needed) 11. Hx Arthritis 12. Prophylactic measures Pepcid 20 mg BID Heparin drip SCDs contraindicated due to the bilateral leg PVD WBC is elevated: could this be secondary to the pain? secondary to S/P procedure (see Assessment and Plan #1 above)? NO Temperature recorded overnight and therefore I have placed nursing order to do so. If continues to be elevated and/or fever will order cultures. Antonio Drummond D.O. Objective - Vital Signs/Intake and Output Vital Signs (last 24 hours): Temp Pulse Resp BP Pulse Ox 98.9 F 91 H 15 173/72 H 100 03/08/17 04:00 03/08/17 08:00 03/08/17 08:00 03/08/17 07:11 03/08/17 08:00 Intake and Output: 03/08/17 03/08/17 06:59 18:59 Intake Total 360.8 Output Total 0 Balance 360.8 - Medications Medications: Current Medications Calcium Acetate (Phoslo) 667 mg PO TIDCC [facility] Last Admin: 03/07/17 12:28 Dose: Not Given Clonidine HCl (Catapres) 0.1 mg PO Q8 [facility] Last Admin: 03/07/17 22:40 Dose: Not Given Clopidogrel Bisulfate (Plavix) 75 mg PO DAILY [facility] Famotidine (Pepcid) 20 mg IVP DAILY [facility] Hydromorphone HCl (Dilaudid) 2 mg IVP Q4H PRN PRN Reason: Pain, severe (8-10) Hydromorphone HCl (Dilaudid) 0.5 mg IVP Q4H PRN PRN Reason: Pain, moderate (4-7) Last Admin: 03/08/17 01:19 Dose: 0.5 mg Heparin Sodium/Sodium Chloride (Heparin 25100 Units/250ml 1/2 Normal Saline) 25 ,000 units in 250 mls @ 11.226 mls/hr IV .[id number] PRN; Protocol; 15 UNITS/KG/HR PRN Reason: PROTOCOL Last Admin: 03/07/17 22:36 Dose: 15 units/kg/hr, 11.226 mls/hr Acetaminophen 1,000 mg/ (Miscellaneous) 100 mls @ 400 mls/hr IV Q6 PRN Stop: 03/08/17 19:56 Last Admin: 03/08/17 00:40 Dose: 400 mls/hr Insulin Human Regular (Novolin R) 0 unit SC ACHS [facility] PRN Reason: Protocol Last Admin: 03/07/17 22:26 Dose: Not Given Ipratropium [place] (Atrovent Hfa) 2 puff IH RQ6 PRN PRN Reason: Shortness of Breath Ketorolac Tromethamine (Toradol) 15 mg IVP Q6 PRN PRN Reason: Pain, severe (8-10) Lisinopril (Zestril) 20 mg PO BID [facility] Last Admin: 03/07/17 09:48 Dose: 20 mg Metoprolol Succinate (Toprol Xl) 25 mg PO BID [facility] Last Admin: 03/07/17 09:47 Dose: 25 mg Mupirocin (Bactroban Ointment) 1 gm TOP BID [facility] Last Admin: 03/07/17 12:28 Dose: Not Given Ondansetron HCl (Zofran Inj) 4 mg IVP DAILY@ONCE PRN PRN Reason: Nausea/Vomiting Rosuvastatin Calcium (Crestor) 10 mg PO HS [facility] Last Admin: 03/07/17 22:40 Dose: Not Given Vitamin B Complex/Vit C/Folic Acid (Nephro-Jane) 1 tab PO 0800 [facility] Last Admin: 03/07/17 08:17 Dose: Not Given - Labs Labs: 03/08/17 05:59 03/08/17 05:59 PT 10.2 SECONDS (9.7-12.2) 03/07/17 11:45 INR 0.9 03/07/17 11:45 APTT 32 SECONDS (21-34) D 03/07/17 11:45
[2017-03-08] MEDS: (Novolin R) Insulin Human Regular 100 units/ml vial SC SCH (08:46)
[2017-03-08] MEDS: Multivitamin Vitamin B Complex (Nephro-Vite) Tab PO SCH (08:46)
--- NOTE | 2017-03-08 12:20 | CP.PCM.PN ---
Subjective - Date & Time of Evaluation Date of Evaluation: 03/08/17 Time of Evaluation: 12:00 - Subjective Subjective: On hemodialysis, agitated with pain, for pain management. Improved color of both legs, pulses are still negative, for pain management and poor prognosis, DNR for hospice Objective - Vital Signs/Intake and Output Vital Signs (last 24 hours): Temp Pulse Resp BP Pulse Ox 98.3 F 104 H 14 144/78 100 03/08/17 09:00 03/08/17 09:00 03/08/17 09:00 03/08/17 09:00 03/08/17 08:00 Intake and Output: 03/08/17 03/08/17 06:59 18:59 Intake Total 360.8 Output Total 0 Balance 360.8 - Medications Medications: Current Medications Calcium Acetate (Phoslo) 667 mg PO TIDCC [facility] Last Admin: 03/08/17 08:46 Dose: Not Given Clonidine HCl (Catapres) 0.1 mg PO Q8 [facility] Last Admin: 03/08/17 08:46 Dose: Not Given Clopidogrel Bisulfate (Plavix) 75 mg PO DAILY [facility] Famotidine (Pepcid) 20 mg IVP DAILY [facility] Hydromorphone HCl (Dilaudid) 2 mg IVP Q4H PRN PRN Reason: Pain, severe (8-10) Last Admin: 03/08/17 12:08 Dose: 2 mg Hydromorphone HCl (Dilaudid) 0.2 mg IVP Q4H PRN PRN Reason: Pain, moderate (4-7) Heparin Sodium/Sodium Chloride (Heparin 70328 Units/250ml 1/2 Normal Saline) 25 ,000 units in 250 mls @ 11.226 mls/hr IV .[id number] PRN; Protocol; 15 UNITS/KG/HR PRN Reason: PROTOCOL Last Admin: 03/07/17 22:36 Dose: 15 units/kg/hr, 11.226 mls/hr Acetaminophen 1,000 mg/ (Miscellaneous) 100 mls @ 400 mls/hr IV Q6 PRN Stop: 03/08/17 19:56 Last Admin: 03/08/17 00:40 Dose: 400 mls/hr Insulin Human Regular (Novolin R) 0 unit SC ACHS [facility] PRN Reason: Protocol Last Admin: 03/08/17 08:46 Dose: Not Given Ipratropium Carbon (Atrovent Hfa) 2 puff IH RQ6 PRN PRN Reason: Shortness of Breath Ketorolac Tromethamine (Toradol) 15 mg IVP Q6 PRN PRN Reason: Pain, severe (8-10) Lisinopril (Zestril) 20 mg PO BID [facility] Last Admin: 03/07/17 09:48 Dose: 20 mg Lorazepam (Ativan) 0.5 mg IVP Q6H PRN PRN Reason: Anxiety Last Admin: 03/08/17 08:42 Dose: 0.5 mg Metoprolol Succinate (Toprol Xl) 25 mg PO BID [facility] Last Admin: 03/07/17 09:47 Dose: 25 mg Mupirocin (Bactroban Ointment) 1 gm TOP BID [facility] Last Admin: 03/07/17 12:28 Dose: Not Given Ondansetron HCl (Zofran Inj) 4 mg IVP DAILY@ONCE PRN PRN Reason: Nausea/Vomiting Rosuvastatin Calcium (Crestor) 10 mg PO HS [facility] Last Admin: 03/07/17 22:40 Dose: Not Given Vitamin B Complex/Vit C/Folic Acid (Nephro-Jane) 1 tab PO 0800 [facility] Last Admin: 03/08/17 08:46 Dose: Not Given - Labs Labs: 03/08/17 05:59 03/08/17 05:59 PT 10.2 SECONDS (9.7-12.2) 03/07/17 11:45 INR 0.9 03/07/17 11:45 APTT 97 SECONDS (21-34) H D 03/08/17 09:07 - Constitutional Appears: Non-toxic - Head Exam Head Exam: ATRAUMATIC - Eye Exam Eye Exam: EOMI - ENT Exam ENT Exam: Mucous Membranes Moist - Neck Exam Neck Exam: absent: Lymphadenopathy, Thyromegaly - Respiratory Exam Respiratory Exam: Clear to Ausculation Bilateral. absent: Rales - Cardiovascular Exam Cardiovascular Exam: REGULAR RHYTHM, Murmur - GI/Abdominal Exam GI & Abdominal Exam: Normal Bowel Sounds. absent: Organomegaly - Rectal Exam Rectal Exam: Deferred - Extremities Exam Extremities Exam: absent: Calf Tenderness, Normal Capillary Refill - Neurological Exam Neurological Exam: Altered - Psychiatric Exam Psychiatric exam: Anxious - Skin Skin Exam: Dry Assessment and Plan (1) Arterial, arteriole and capillary disease Status: Acute (2) Status post coronary artery stent placement Status: Chronic (3) Diabetes 1.5, managed as type 2 Status: Chronic (4) ESRD (end stage renal disease) Status: Chronic (5) Hypertension Status: Chronic
[2017-03-08 12:44] VITALS: RESP 9
[2017-03-08 14:47] VITALS: BP 140/65; PULSE 108; TEMP 97.3
--- NOTE | 2017-03-08 14:54 | CP.PCM.CON ---
History of Present Illness - History of Present Illness History of Present Illness: palliative consult Requested by Antonio Drummond DO Reason: Comfort measures discussion Patient is a 86 yo lady admitted to ER with severe pain of Left LEs. The left LEs pain was present for 5 days and patient managed it at home with Tylenol. Patient was able to ambulate at home using cane. While at [place] on HD, Doctor Cecilio was concerned with her left leg feeling cool to touch and being so painfull and advised transfer to ED for further evaluation by Doctor Alexa who advised admission. After the attempted anteriogram , the amputation of affected limb was suggested. Patient who is capable of making decisions refused it. patient's two daughter, after discussing the case with Doctor Adam Drummond requested more information about comfort care. Patient's daughter Amina, who has been main career services manager for the last 5 years, was very clear that her mother had told her many times in the past that she would not want any type of aggressive interventions, especially no amputation. PMH: anxiety, arthrirtis, CAD, A Fib, CHF, COPD, DM Soc. hx: quit smoking 30 years ago, , lives at home with her daughter Lucille Gross hx: Mother from cirrhosis, CAD All: Anaphylactic reaction to iodine Review of Systems - Constitutional Constitutional: absent: As Per HPI, Anorexia, Chills, Daytime Sleepiness, Excessive Sweating, Fatigue, Fever, Frequent Falls, Headache, Increased Appetite , Lethargy, Malaise, Night Sweats, Snoring, Sleep Apnea, Weight Gain, Weight Loss, Weakness, Other - EENT Eyes: absent: As Per HPI, Blind Spots, Blurred Vision, Change in Vision, Decreased Night Vision, Diplopia, Discharge, Dry Eye, Exophthalmos, Floaters, Irritation, Itchy Eyes, Loss of Peripheral Vision, Pain, Photophobia, Requires Corrective Lenses, Sees Flashes, Spots in Vision, Tunnel Vision, Other Visual Disturbances, Loss of Vision, Other Ears: absent: As Per HPI, Decreased Hearing, Ear Discharge, Ear Pain, Tinnitus, Abnormal Hearing, Disequilibrium, Dizziness, Other Nose/Mouth/Throat: absent: As Per HPI, Epistaxis, Nasal Congestion, Nasal Discharge, Nasal Obstruction, Nasal Trauma, Nose Pain, Post Nasal Drip, Sinus Pain, Sinus Pressure, Bleeding Gums, Change in Voice, Dental Pain, Dry Mouth, Dysphagia, Halitosis, Hoarsness, Lip Swelling, Mouth Lesions, Mouth Pain, Odynophagia, Sore Throat, Throat Swelling, Tongue Swelling, Facial Pain, Neck Pain, Neck Mass, Other - Breasts Breasts: absent: As Per HPI, Change in Shape, Mass, Pain, Nipple Discharge, Nipple Inversion, Skin Changes, Swelling, Other - Cardiovascular Cardiovascular: Rapid Heart Rate - Respiratory Respiratory: absent: As Per HPI, Cough, Dyspnea, Hemoptysis, Dyspnea on Exertion , Wheezing, Snoring, Stridor, Pain on Inspiration, Chest Congestion, Excessive Mucous Production, Change in Mucous Color, Pain with Coughing, Other - Gastrointestinal Gastrointestinal: absent: As Per HPI, Abdominal Pain, Belching, Bloating, Change in Bowel Habits, Change in Stool Character, Coffee Ground Emesis, Constipation, Cramping, Diarrhea, Dyspepsia, Dysphagia, Early Satiety, Excessive Flatus, Fecal Incontinence, Heartburn, Hematemesis, Hematochezia, Loose Stools, Melena, Nausea, Odynophagia, Temesmus, Vomiting, Other - Genitourinary Genitourinary: absent: As Per HPI, Change in Urinary Stream, Difficulty Urinating, Dysuria, Flank Pain, Hematuria, Pyuria, Nocturia, Urinary Incontinence, Urinary Frequency, Urinary Hesitance, Urinary Urgency, Voiding Freq/Small Amts, Freq UTI, Hx Renal/Bladder Calculi, Hx /Renal Surgery, Bladder Distension, Other - Reproductive: Female Reproductive:Female: Post Menopausal - Menstruation Menstruation: Post Menopausal - Musculoskeletal Musculoskeletal: Limited Range of Motion, Radiating Pain into Limb - Integumentary Integumentary: Change in Pigmentation - Neurological Neurological: absent: As Per HPI, Abnormal Gait, Abnormal Hearing, Abnormal Movements, Abnormal Speech, Behavioral Changes, Burning Sensations, Confusion, Convulsions, Disequilibrium, Dizziness, Numbness, Focal Weakness, Frequent Falls , Headaches, Lack of Coordination, Loss of Vision, Memory Loss, Paresthesias, Radicular Pain, Restless Legs, Sensory Deficit, Syncope, Tingling, Tremor, Vertigo, Weakness, Other Visual Disturbances, Other - Psychiatric Psychiatric: Anxiety - Endocrine Endocrine: absent: As Per HPI, Change in Body Appearance, Change in Libido, Cold Intolorance, Deepening of Voice, Excessive Sweating, Fatigue, Flushing, Heat Intolorance, Increase in Ring/Shoe/Hat Size, Palpitations, Polydipsia, Polyphagia, Polyuria, Other - Hematologic/Lymphatic Hematologic: absent: As Per HPI, Easy Bleeding, Easy Bruising, Lymphadenopathy, Other Past Patient History - Infectious Disease Hx of Infectious Diseases: None - Tetanus Immunizations Tetanus Immunization: Unknown - Past Medical History & Family History Past Medical History?: Yes - Past Social History Smoking Status: Former Smoker - CARDIAC Hx Atrial Fibrillation: Yes Hx Cardia Arrhythmia: Yes (AFIB) Hx Congestive Heart Failure: Yes Hx Hypertension: Yes Hx Pacemaker: No Hx Peripheral Edema: Yes (ble +1 edema) - PULMONARY Hx Asthma: Yes Hx Chronic Obstructive Pulmonary Disease (COPD): Yes Hx Pneumonia: Yes - NEUROLOGICAL Hx Neurological Disorder: Yes Hx Dizziness: Yes - HEENT Hx HEENT Problems: No - RENAL Hx Chronic Kidney Disease: Yes Hx Kidney Stones: Yes (1975) - ENDOCRINE/METABOLIC Hx Endocrine Disorders: Yes Hx Diabetes Mellitus Type 2: Yes - HEMATOLOGICAL/ONCOLOGICAL Hx Blood Disorders: Yes (blood transfusion) - INTEGUMENTARY Hx Dermatological Problems: Yes Other/Comment: fading red rash to ble from knees to feet and r arm, bright red rash to right hand and arm, right hand/arm rash started today, right great toe right foot 0.2cm round brown dry wound, r 5th toe redness tip is purple due to medication,redness swelling to toes decreasing since yesterday as per family member and pt. small 0.2cm round brown dry wound to outer left great toe redness and swelling to toes improving since yesterday as per family member and pt but still has +1 edema to left foot, hard thick toenails b/l feet, both feet sensitive to touch - MUSCULOSKELETAL/RHEUMATOLOGICAL Hx Arthritis: Yes Hx Fractures: Yes (BRIDGE OF NOSE) - GASTROINTESTINAL Hx Gastrointestinal Disorders: Yes (hemorrhoid) Hx Ulcer: Yes Other/Comment: constipatiion has resolved x 1 yr pt does not take laxatives anymore - GENITOURINARY/GYNECOLOGICAL Hx Genitourinary Disorders: Yes Other/Comment: pt voids every day x3 dialysis m/w/f at [facility] [place] - PSYCHIATRIC Hx Anxiety: Yes Hx Depression: No Hx Substance Use: No - SURGICAL HISTORY Hx Coronary Stent: Yes (x7) - ANESTHESIA Hx Anesthesia Reactions: No Hx Malignant Hyperthermia: No Meds Allergies/Adverse Reactions: Allergies Allergy/AdvReac Type Severity Reaction Status Date / Time ciprofloxacin Allergy Severe hives Verified 03/06/17 11:09 codeine Allergy Severe hives Verified 03/06/17 11:09 Sulfa (Sulfonamide Allergy Severe HIVES Verified 03/06/17 11:09 Antibiotics) iodine Allergy ANAPHYLAXIS Verified 03/06/17 11:09 Physical Exam - Constitutional Appears: Chronically Ill - Head Exam Head Exam: ATRAUMATIC, NORMAL INSPECTION, NORMOCEPHALIC - Eye Exam Eye Exam: EOMI, Normal appearance, PERRL Pupil Exam: NORMAL ACCOMODATION, PERRL - ENT Exam ENT Exam: Mucous Membranes Moist, Normal Exam - Neck Exam Neck exam: Positive for: Normal Inspection - Respiratory Exam Respiratory Exam: Decreased Breath Sounds, NORMAL BREATHING PATTERN - Cardiovascular Exam Cardiovascular Exam: Tachycardia, REGULAR RHYTHM - GI/Abdominal Exam GI & Abdominal Exam: Normal Bowel Sounds, Soft - Rectal Exam Rectal Exam: Deferred - Extremities Exam Additional comments: Severe pain of left LEs. sckin pale and cool to touch - Back Exam Back exam: NORMAL INSPECTION - Neurological Exam Neurological exam: Alert - Psychiatric Exam Psychiatric exam: Agitated - Skin Skin Exam: Cyanosis, Pallor Results - Vital Signs Recent Vital Signs: Last Vital Signs Temp 97.3 F L 03/08/17 12:15 Pulse 109 H 03/08/17 12:37 Resp 9 L 03/08/17 12:37 BP 128/54 L 03/08/17 12:37 Pulse Ox 100 03/08/17 12:37 - Labs Result Diagrams: 03/08/17 05:59 03/08/17 05:59 Labs: Laboratory Results - last 24 hr 03/07/17 03/07/17 03/07/17 18:16 18:28 19:16 WBC 20.5 H RBC 4.17 Hgb 11.8 Hct 36.8 MCV 88.3 MCH 28.4 MCHC 32.2 L RDW 14.8 H Plt Count 220 MPV 10.0 Neut % (Auto) 94.3 H Lymph % (Auto) 4.0 L Johnston % (Auto) 1.1 Eos % (Auto) 0.5 Baso % (Auto) 0.1 Neut # 19.3 H Lymph # 0.8 L Johnston # 0.2 Eos # 0.1 Baso # 0.0 Neutrophils % (Manual) 96 H Band Neutrophils % Lymphocytes % (Manual) 3 L Monocytes % (Manual) 1 Platelet Estimate Normal RBC Morphology Hypochromasia (manual) Slight APTT Sodium Cancelled Potassium Cancelled Chloride Cancelled Carbon Dioxide Cancelled Anion Gap Cancelled BUN Cancelled Creatinine Cancelled Est GFR ( Amer) Cancelled Est GFR (Non-Af Amer) Cancelled POC Glucose (mg/dL) 207 H Random Glucose Cancelled Calcium Cancelled Total Bilirubin Cancelled AST Cancelled ALT Cancelled Alkaline Phosphatase Cancelled Total Protein Cancelled Albumin Cancelled Globulin Cancelled Albumin/Globulin Ratio Cancelled 03/07/17 03/07/17 03/08/17 22:25 23:24 03:19 WBC RBC Hgb Hct MCV MCH MCHC RDW Plt Count MPV Neut % (Auto) Lymph % (Auto) Johnston % (Auto) Eos % (Auto) Baso % (Auto) Neut # Lymph # Johnston # Eos # Baso # Neutrophils % (Manual) Band Neutrophils % Lymphocytes % (Manual) Monocytes % (Manual) Platelet Estimate RBC Morphology Hypochromasia (manual) APTT Sodium 130 L Potassium 7.0 H* D Chloride 91 L Carbon Dioxide 19 L Anion Gap 27 H BUN 50 H Creatinine 5.2 H Est GFR ( Amer) 9 Est GFR (Non-Af Amer) 8 POC Glucose (mg/dL) 230 H 314 H Random Glucose 244 H Calcium 8.8 Total Bilirubin 1.0 AST 34 ALT 22 Alkaline Phosphatase 77 Total Protein 6.8 Albumin 3.6 Globulin 3.2 Albumin/Globulin Ratio 1.1 03/08/17 03/08/17 03/08/17 05:59 05:59 08:19 WBC 33.7 H D RBC 4.33 Hgb 12.1 Hct 38.8 MCV 89.6 MCH 27.8 MCHC 31.1 L RDW 14.2 Plt Count 294 MPV 10.9 Neut % (Auto) 91.8 H Lymph % (Auto) 2.6 L Johnston % (Auto) 5.5 Eos % (Auto) 0.0 Baso % (Auto) 0.1 Neut # 30.9 H Lymph # 0.9 L Johnston # 1.8 H Eos # 0.0 Baso # 0.0 Neutrophils % (Manual) 92 H Band Neutrophils % 1 Lymphocytes % (Manual) 3 L Monocytes % (Manual) 4 Platelet Estimate Normal RBC Morphology Normal Hypochromasia (manual) APTT Sodium 133 Potassium 7.0 H* Chloride 90 L Carbon Dioxide 16 L Anion Gap 34 H BUN 52 H Creatinine 5.6 H Est GFR ( Amer) 9 Est GFR (Non-Af Amer) 7 POC Glucose (mg/dL) 183 H Random Glucose 257 H Calcium 9.2 Total Bilirubin 0.9 AST 34 ALT 22 Alkaline Phosphatase 83 Total Protein 7.5 Albumin 4.0 Globulin 3.5 Albumin/Globulin Ratio 1.1 03/08/17 03/08/17 09:07 12:00 WBC RBC Hgb Hct MCV MCH MCHC RDW Plt Count MPV Neut % (Auto) Lymph % (Auto) Johnston % (Auto) Eos % (Auto) Baso % (Auto) Neut # Lymph # Johnston # Eos # Baso # Neutrophils % (Manual) Band Neutrophils % Lymphocytes % (Manual) Monocytes % (Manual) Platelet Estimate RBC Morphology Hypochromasia (manual) APTT 97 H D Sodium Potassium Chloride Carbon Dioxide Anion Gap BUN Creatinine Est GFR ( Amer) Est GFR (Non-Af Amer) POC Glucose (mg/dL) 78 Random Glucose Calcium Total Bilirubin AST ALT Alkaline Phosphatase Total Protein Albumin Globulin Albumin/Globulin Ratio Assessment & Plan - Assessment and Plan (Free Text) Assessment: Palliative consult Code status prior to consult was Full Code, No advance directive on the chart, PPS 30% I reviewed medical records, all diagnostic studies, examined patient in the bed , discussed her care with Doctor Adam Drummond and had family meeting with the daughters for comfort care discussion. Patient is alert, very agitated in pain, holding her left knee elevated in the bed trying to find comfortable position. Patient was given HD while on ICU. Patient medicated with STAT dose of Dilaudid IV with relief. Skin is pale, breath sounds clear, heart in ST, HR 104. Patient is afebrile. WBC 33.0. Abdomen flat and soft. left LEs is pale, cool to touch, diminished pedal pulses and very painful as per patient. Pain 7-8, improved with meds only. Family reports that pain was treated in the past with Dilaudid and was effective. BP 128/54. Family meeting attended by two patient's daughter, Raad the nurse from [facility] invited by Doctor Adam Drummond, and my self. Prior to meeting Chaplain Garcia prayed with the family. Patient's clinical presentation reviewed and measures taken for improved comfort. Both daughters were very concerned with patient's comfort and wanted the pain to be managed more aggressively. We discussed all possible measures appropriate for managing the symptoms, one of them being amputation of left leg. The daughter Lucille, the main career services manager for the last five years, was very specific that her mother would never accept amputation or any other aggressive treatment. The daughter was specifically interested in comfort measures for promotion of comfort and better quality of life. I reviewed with them that patient may need the opioids for the management of pain and those meds could affect patient's breathing. The daughter stated understanding and agreed with pain management. Further, the comfort measures at home under the supervision of Hospice were discussed. The daughter stated enough support at home to assist her mother with all needs. Raad spoke to them in more detail about the hospice at home. ILANA signed. DNr/DNI. Patient will be admitted to inhouse hospice firts until pain better controlled than sent home. Impression * Chronically ill patient with acute severe pain due to PVD * Patient and family refused suggested amputation as the only way of removing the pain source * Family requested Comfort care * ILANA signed * Patient admitted to in house hospice Suggestion * DNR/DNI * Agree with agressive pain management * Promote comfort * O2 for respiratory depression
--- NOTE | 2017-03-08 14:58 | CP.PCM.PN ---
Subjective - Date & Time of Evaluation Date of Evaluation: 03/07/17 Time of Evaluation: 15:00 - Subjective Subjective: had pci, occluded graft, had trombectomy, thombolysis, balloned and stented, now in ICU sedated, did well Objective - Vital Signs/Intake and Output Vital Signs (last 24 hours): Temp Pulse Resp BP Pulse Ox 97 F L 88 14 157/72 H 99 03/07/17 20:04 03/07/17 20:04 03/07/17 20:04 03/07/17 20:04 03/07/17 20:04 Intake and Output: 03/07/17 03/08/17 18:59 06:59 Intake Total 0 Output Total 0 Balance 0 0 - Medications Medications: Current Medications Calcium Acetate (Phoslo) 667 mg PO TIDCC [facility] Last Admin: 03/07/17 12:28 Dose: Not Given Clonidine HCl (Catapres) 0.1 mg PO Q8 [facility] Last Admin: 03/07/17 09:48 Dose: 0.1 mg Clopidogrel Bisulfate (Plavix) 75 mg PO DAILY [facility] Hydromorphone HCl (Dilaudid) 1 mg IVP Q4H PRN PRN Reason: Pain, moderate (4-7) Hydromorphone HCl (Dilaudid) 2 mg IVP Q4H PRN PRN Reason: Pain, severe (8-10) Heparin Sodium/Sodium Chloride (Heparin 94910 Units/250ml 1/2 Normal Saline) 25 ,000 units in 250 mls @ 0 mls/hr IV .Q0M PRN; Protocol; Per Protocol PRN Reason: PROTOCOL Acetaminophen 1,000 mg/ (Miscellaneous) 100 mls @ 400 mls/hr IV Q6 PRN Stop: 03/08/17 19:56 Insulin Human Regular (Novolin R) 0 unit SC ACHS [facility] PRN Reason: Protocol Last Admin: 03/07/17 12:28 Dose: Not Given Ipratropium [place] (Atrovent Hfa) 2 puff IH RQ6 PRN PRN Reason: Shortness of Breath Ketorolac Tromethamine (Toradol) 30 mg IVP Q6 PRN PRN Reason: Pain, moderate (4-7) Last Admin: 03/06/17 19:29 Dose: 30 mg Ketorolac Tromethamine (Toradol) 15 mg IVP Q6 [facility] Lisinopril (Zestril) 20 mg PO BID [facility] Last Admin: 03/07/17 09:48 Dose: 20 mg Metoprolol Succinate (Toprol Xl) 25 mg PO BID [facility] Last Admin: 03/07/17 09:47 Dose: 25 mg Mupirocin (Bactroban Ointment) 1 gm TOP BID [facility] Last Admin: 03/07/17 12:28 Dose: Not Given Pantoprazole Sodium (Protonix Inj) 40 mg IVP DAILY [facility] Rosuvastatin Calcium (Crestor) 10 mg PO HS [facility] Last Admin: 03/06/17 22:12 Dose: Not Given Vitamin B Complex/Vit C/Folic Acid (Nephro-Jane) 1 tab PO 0800 [facility] Last Admin: 03/07/17 08:17 Dose: Not Given - Labs Labs: 03/07/17 18:16 03/07/17 19:16 PT 10.2 SECONDS (9.7-12.2) 03/07/17 11:45 INR 0.9 03/07/17 11:45 APTT 32 SECONDS (21-34) D 03/07/17 11:45 - Constitutional Appears: Toxic - Head Exam Head Exam: ATRAUMATIC - Eye Exam Eye Exam: EOMI - ENT Exam ENT Exam: Mucous Membranes Moist - Neck Exam Neck Exam: absent: Lymphadenopathy, Thyromegaly - Respiratory Exam Respiratory Exam: Clear to Ausculation Bilateral. absent: Rales - Cardiovascular Exam Cardiovascular Exam: REGULAR RHYTHM, Murmur - GI/Abdominal Exam GI & Abdominal Exam: Normal Bowel Sounds. absent: Organomegaly - Rectal Exam Rectal Exam: Deferred - Extremities Exam Extremities Exam: absent: Calf Tenderness - Neurological Exam Neurological Exam: Alert - Psychiatric Exam Psychiatric exam: Normal Mood - Skin Skin Exam: Dry Assessment and Plan (1) Arterial, arteriole and capillary disease Status: Acute (2) Status post coronary artery stent placement Status: Chronic (3) Diabetes 1.5, managed as type 2 Status: Chronic (4) ESRD (end stage renal disease) Status: Chronic (5) Hypertension Status: Chronic
--- NOTE | 2017-03-08 17:56 | CP.PCM.PN ---
Subjective - Date & Time of Evaluation Date of Evaluation: 03/08/17 Time of Evaluation: 12:00 - Subjective Subjective: Patient complaining of pain, agitated; Objective - Vital Signs/Intake and Output Vital Signs (last 24 hours): Temp Pulse Resp BP Pulse Ox 97.3 F L 109 H 9 L 128/54 L 100 03/08/17 12:15 03/08/17 12:37 03/08/17 12:37 03/08/17 12:37 03/08/17 12:37 Intake and Output: 03/08/17 03/08/17 06:59 18:59 Intake Total 360.8 51.5 Output Total 0 0 Balance 360.8 51.5 - Labs Labs: 03/08/17 05:59 03/08/17 05:59 PT 10.2 SECONDS (9.7-12.2) 03/07/17 11:45 INR 0.9 03/07/17 11:45 APTT 97 SECONDS (21-34) H D 03/08/17 09:07 - Constitutional Appears: In Acute Distress - Head Exam Head Exam: NORMAL INSPECTION - Eye Exam Eye Exam: Normal appearance - Respiratory Exam Respiratory Exam: Clear to Ausculation Bilateral. absent: Respiratory Distress - Cardiovascular Exam Cardiovascular Exam: REGULAR RHYTHM, +S1, +S2 - GI/Abdominal Exam GI & Abdominal Exam: Soft. absent: Distended - Extremities Exam Additional comments: No leg edema; L lower leg and foot cool to touch; - Neurological Exam Neurological Exam: Alert - Psychiatric Exam Psychiatric exam: Agitated - Skin Additional comments: Cool bilateral feet; Assessment and Plan (1) ESRD on hemodialysis Assessment & Plan: Marked hyperkalemia, dialyzed urgently on low K dialysate with low UF to avoid hypotension; Had detailed discussion with patient's daughter regarding continuing further HD treatments in light of family deciding to make patient comfort care; this comes after inability to maintain perfusion to LLE despite yesterday's procedure and recommendation of impending need for amputation (which patient is against); daughter was explained that LLE pain can increase with HD (as has been patient' s experience); daughter opting to withdraw further HD treatments; it was explained to her that patient is almost anuric and that she would become hyperkalemic with ensuing cardiac arrest without regular HD; daughter understands the consequences; she was advised that if she or the patient were to change their mind, we would re-initiate HD on Saturday; Status: Chronic (2) Hypertensive kidney disease with ESRD (end-stage renal disease) Assessment & Plan: Continue current regimen; pain likely making BP harder to control, should re- assess once on dilaudid [employer]OTOCOPYING MACHINE OPERATOR; Status: Acute (3) Anemia in ESRD (end-stage renal disease) Assessment & Plan: Hgb at goal, monitor; Status: Chronic (4) Chronic kidney disease-mineral and bone disorder Assessment & Plan: Phos has been at goal, continue phoslo for now but can discontinue if HD is definitely being stopped; Status: Acute (5) Peripheral vascular disease Assessment & Plan: Severe PVD; HD treatments likely worsening ischemia intermittently; see above; Status: Acute
--- NOTE | 2017-03-08 18:11 | CP.PCM.DIS ---
Provider - Provider Date of Admission: 03/06/17 11:42 Attending physician: Antonio Drummond MD Consults: Vascular Surgeon Dr. Liu Nephrology Dr. Cohen Worm Packer Dr. Chatterjee Time Spent in preparation of Discharge (in minutes): 40 Hospital Course - Lab Results Lab Results: Micro Results 03/07/17 18:47 Naris MRSA Culture (Admit) - Final MRSA NOT DETECTED Most Recent Lab Values WBC 33.7 K/uL (4.8-10.8) H D 03/08/17 05:59 RBC 4.33 Mil/uL (3.80-5.20) 03/08/17 05:59 Hgb 12.1 g/dL (11.0-16.0) 03/08/17 05:59 Hct 38.8 % (34.0-47.0) 03/08/17 05:59 MCV 89.6 fL (81.0-99.0) 03/08/17 05:59 MCH 27.8 pg (27.0-31.0) 03/08/17 05:59 MCHC 31.1 g/dL (33.0-37.0) L 03/08/17 05:59 RDW 14.2 % (11.5-14.5) 03/08/17 05:59 Plt Count 294 K/uL (130-400) 03/08/17 05:59 MPV 10.9 fL (7.2-11.7) 03/08/17 05:59 Neut % (Auto) 91.8 % (50.0-75.0) H 03/08/17 05:59 Lymph % (Auto) 2.6 % (20.0-40.0) L 03/08/17 05:59 [place] % (Auto) 5.5 % (0.0-10.0) 03/08/17 05:59 Eos % (Auto) 0.0 % (0.0-4.0) 03/08/17 05:59 Baso % (Auto) 0.1 % (0.0-2.0) 03/08/17 05:59 Neut # 30.9 K/uL (1.8-7.0) H 03/08/17 05:59 Lymph # 0.9 K/uL (1.0-4.3) L 03/08/17 05:59 [place] # 1.8 K/uL (0.0-0.8) H 03/08/17 05:59 Eos # 0.0 K/uL (0.0-0.7) 03/08/17 05:59 Baso # 0.0 K/uL (0.0-0.2) 03/08/17 05:59 Neutrophils % (Manual) 92 % (50-75) H 03/08/17 05:59 Band Neutrophils % 1 % (0-2) 03/08/17 05:59 Lymphocytes % (Manual) 3 % (20-40) L 03/08/17 05:59 Monocytes % (Manual) 4 % (0-10) 03/08/17 05:59 Platelet Estimate Normal (NORMAL) 03/08/17 05:59 RBC Morphology Normal 03/08/17 05:59 Hypochromasia (manual) Slight 03/07/17 18:16 PT 10.2 SECONDS (9.7-12.2) 03/07/17 11:45 INR 0.9 03/07/17 11:45 APTT 97 SECONDS (21-34) H D 03/08/17 09:07 Sodium 133 mmol/L (132-148) 03/08/17 05:59 Potassium 7.0 mmol/L (3.6-5.2) H* 03/08/17 05:59 Chloride 90 mmol/L (98-107) L 03/08/17 05:59 Carbon Dioxide 16 mmol/L (22-30) L 03/08/17 05:59 Anion Gap 34 (10-20) H 03/08/17 05:59 BUN 52 mg/dL (7-17) H 03/08/17 05:59 Creatinine 5.6 MG/DL (0.7-1.2) H 03/08/17 05:59 Est GFR ( Amer) 9 03/08/17 05:59 Est GFR (Non-Af Amer) 7 03/08/17 05:59 POC Glucose (mg/dL) 78 mg/dL (65-110) 03/08/17 12:00 Random Glucose 257 mg/dL (65-105) H 03/08/17 05:59 Calcium 9.2 mg/dl (8.6-10.4) 03/08/17 05:59 Phosphorus 4.3 mg/dL (2.5-4.5) 03/07/17 11:45 Magnesium 2.2 mg/dL (1.6-2.3) 03/07/17 11:45 Total Bilirubin 0.9 mg/dL (0.2-1.3) 03/08/17 05:59 AST 34 U/L (14-36) 03/08/17 05:59 ALT 22 U/L (9-52) 03/08/17 05:59 Alkaline Phosphatase 83 U/L (38-126) 03/08/17 05:59 NT-Pro-B Natriuret Pep 53551 pg/mL (0-900) H 03/07/17 11:45 Total Protein 7.5 g/dL (6.3-8.3) 03/08/17 05:59 Albumin 4.0 g/dL (3.5-5.0) 03/08/17 05:59 Globulin 3.5 gm/dL (2.2-3.9) 03/08/17 05:59 Albumin/Globulin Ratio 1.1 (1.0-2.1) 03/08/17 05:59 Triglycerides 136 mg/dL (0-149) 03/07/17 11:45 Cholesterol 171 mg/dL (0-199) 03/07/17 11:45 LDL Cholesterol Direct 98 mg/dL (0-129) 03/07/17 11:45 HDL Cholesterol 43 mg/dL (30-70) 03/07/17 11:45 Free T4 1.30 ng/dL (0.78-2.19) 03/07/17 11:45 TSH 3rd Generation 1.91 mIU/L (0.46-4.68) 03/07/17 11:45 Blood Type O POSITIVE 03/06/17 16:52 Antibody Screen Positive 03/06/17 16:52 Antibody Identification Non Specific Antibody 03/06/17 16:52 Elution Negative 03/06/17 16:52 ERIKA, Poly Interpret Positive (NEGATIVE) H 03/06/17 16:52 - Hospital Course Hospital Course: Hospitalist Progress Note (Patient was seen and examined at 8:05 AM 03/07/17 ICU Bed 16) Patient is a 86 year old female with PMH of CAD, coronary stents x 7, AFib, CHF , COPD, DM, HTN, CKD (dialysis MWF), asthma, arthritis, anxiety, left leg femoral popliteal artery bypass (2014), was admitted on 03/05/17 for Left AortoFemoral Angiogram with TPA administration. She underwent this procedure by Vascular Surgeon Dr. Yang Liu on 03/06/17. However after the procedure, the patiet's left lowere extremity was still ischemic and patient was in unrelenting pain. Patient expressed her desire to have comfort care only so that her pain could be managed. She stated that she would rather pass away then have her leg amputed. Palliative Care and [facility] consults were obtained at the request of Daughter Lucille. Patient was accepted to in-patient hospice here at [facility]. Please see individual Assessment and Plans below for further details of her hospital course. Currently upon FULL ROS: Severe lower left leg pain NO other complaints Physical Exam - Constitutional Appears: Very uncomfortable, repeating "Please help me" - Head Exam Head Exam: ATRAUMATIC, NORMAL INSPECTION, NORMOCEPHALIC - Eye Exam Eye Exam: EOMI, Normal appearance, PERRL - ENT Exam ENT Exam: Mucous Membranes Moist, Normal Exam - Neck Exam Neck exam: Positive for: Full Rom, Normal Inspection - Respiratory Exam Respiratory Exam: Rales, NORMAL BREATHING PATTERN Additional comments: Faint Bibasilar Inspiratory Rales - Cardiovascular Exam Cardiovascular Exam: Irregularly Irregular - GI/Abdominal Exam GI & Abdominal Exam: Normal Bowel Sounds, Soft. absent: Distended, Firm, Guarding - Extremities Exam Extremities exam: Positive for: calf tenderness. Negative for: pedal edema Additional comments: left foot cold to the touch capillary refill <2 seconds left toes slightly cyanotic right 5th toe dip: unstageable ulcer .8cm right 1st toe dip: .5 cm ulcer left 1st toe dip: .5cm ulcer ulcers dry, no purulence, no malodor - Back Exam Back exam: NORMAL INSPECTION. - Neurological Exam Neurological exam: CN II through XII grossly intact - Psychiatric Exam Psychiatric exam: In severe pain - Skin Additional comments: left foot cold to the touch, cyanotic toes right 5th toe dip: unstageable ulcer .8cm right 1st toe dip: .5 cm ulcer left 1st toe dip: .5cm ulcer ulcers dry, no purulence, no malodor Assessment & Plan - Assessment and Plan (Free Text) Assessment: 1. Peripheral Vascular Disease She is S/P Left Aortofemoral Angiogram with selective catheterization of Left Femoral Artery, Mechanical thrombolysis of left occluded graft with TPA and Angiojet, stent placement, balloon angioplasty of peroneal artery on 03/06/17 Dr. Liu (surgery) Heparin drip restarted after procedure on 03/06/17 Extensive conversation with Daughter this morning concerning pain management for this patient as well as rug hooker goals as Dr. Liu informed Daughter/ Patient that he did not feel that the procedure was a success and that the next step would likely be amputation of extremity. Daughter explained to me that patient has expressed in the past that she does not want this done. I will reach out to Dr. Liu later today. Daughter is in the process of selling patient's home (that has 19 stairs) today and is planning on having patient move in with her. 2. CAD s/p 7 stents Cardio: Dr. Hughes, consulted, andpatient was cleared for procedure by Dr. Chatterjee who was covering for Dr. Hughes whom the patient sees as an outpatient. Metoprolol 25 mg PO BID hold if systolic <100, HR <60 3. Foot ulcers right 5th toe DIP: unstageable ulcer .8cm, black/purple in color due to medication right 1st toe DIP: .5 cm ulcer left 1st toe DIP: .5cm ulcer * ulcers dry, no purulence, no malodor Podiatry Dr. Cuadra (with whom the patient follows up with as an outpatient) recommended Bactroban 4. CHF Echo (01/2017) - EF estimated to be 55% ekg: NSR with first degree block (unchanged from 01/26) Crestor 10 mg Fluid Restriction to 24 ounces a day 5. HTN Elevated overnight 03/06/17 into 03/07/17 likely secondary to pain Metoprolol 25 mg PO BID hold if systolic <100, HR <60 Lisinopril 20 mg PO BID Clonidine .1mg for systolic >160 6. DM type 2 Holding home medication of Prandin for now accuchecks ACHS ISS -- low dose 7. ESRD Dr. Cohen, consulted, help appreciated * physician is aware Hemodialysis MWF at [facility] through Left Arm AV Fistula as an outpatient Phoslo 667 mg PO TID 8. COPD, Asthma Ipratropium 2 puff IH q6h PRN 9. Hx Afib HR controlled, no need for telemetry Metoprolol as above Aspirin held because heparin drip started 10. Hx Anxiety Ativan 0.5 mg IV Q6H PRN Anxiety (uses Xanax at home as needed) 11. Hx Arthritis 12. Prophylactic measures Pepcid 20 mg BID Heparin drip SCDs contraindicated due to the bilateral leg PVD Discharge Exam - Head Exam Head Exam: NORMAL INSPECTION Discharge Plan - Follow Up Plan Condition: STABLE Disposition: HOSPICE - MEDICAL FACILITY
--- NOTE | 2017-03-08 19:18 | VAS ---
DATE: 03/07/2017 PREOPERATIVE DIAGNOSIS: Gangrene, left foot. Occluded bypass. POSTOPERATIVE DIAGNOSIS: Gangrene, left foot. Occluded bypass. PROCEDURE CARRIED OUT: 1. Aortofemoral angiogram via the right groin with selective catheterization of the left femoral artery. 2. Mechanical thrombolysis using tPA and the AngioJet device of the occluded graft. 3. Placement of stents at the proximal and distal anastomoses into the popliteal and femoral artery. 4. A balloon angioplasty of the entire peroneal artery down to the foot. 5. A Perclose exposure of the right groin. FINDINGS: The aorta was diffusely diseased with multiple atherosclerotic lesions and approximately 50% stenoses of both the origin of the right and left common iliac arteries. Below this, on the right side, the superficial femoral artery and profunda femoris arteries were widely patent with multiple areas of stenosis, some as severe of over 80%, but basically in continuity and open down to the level of the peroneal artery. At the distal portion of the tibioperoneal trunk proximal to the peroneal artery, there was a severe stenosis on the right side. On the left side, the previously placed bypass was occluded with a hernandez. It reconstituted to the popliteal artery below the knee, which had one-vessel runoff to the peroneal Subsequent to the performance of the diagnostic arteriogram, a stiff-angled Glidewire was advanced over the aortic bifurcation and a 7-Haitian sheath was positioned in the distal portion of the external iliac artery. Using a variety of techniques, the lesion was eventually crossed and an AngioJet device with tPA was then deployed with a half an hour wait and then we went back in and suctioned this out. This showed there were residual areas of stenosis at the proximal anastomosis, which were resistant to balloon angioplasty and additional mechanical thrombolysis and then also distally, there were grafts clotting that had occurred distally. We then treated these again with the use of a balloon expandable 6-mm stent proximally and distally, we deployed a 5-mm stent down to the popliteal artery to the bifurcation. At this point, we had then balloon angioplastied the peroneal artery using a long 210 mm balloon with good cosmetic results. We then took additional films, which showed slow flow into the vessels, but did flow, did fill. We then deployed a Perclose device in the right groin and we showed concern regarding the pulse over the subsequent results and exam showed that there was good and lateral flow distal to the point of closure. We then terminated the procedure. We had a palpable pulse although weak behind the left knee. The patient remained anticoagulated and the prognosis was recorded. The procedure was quite extensive due to the problems related to the recalcitrant stenoses at the two anastomoses, which we eventually were able to treat. Blood loss for the procedure is over 100 mL and the operation carried out is aortofemoral angiogram with selective catheterization of the left femoral artery, mechanical thrombolysis with tPA and the AngioJet device of the occluded graft. Then we deployed a balloon expandable 6-mm stent at the proximal anastomosis and a 5-mm stent distally. We also required balloon angioplasty of the tibial artery going into the foot, the peroneal artery using a 2-mm balloon. At the end, the Perclose device was applied in the groin. Yang Liu Jr., MD cc: Jonathon , MD Jeremie Mcclain MD 03/07/2017 Yang Liu Jr., MD 18:33:02 MARCELLO
--- NOTE | 2017-03-11 06:48 | CARD ---
APPROVED REPORT EKG Measurement Heart [id number] <Conclusion> Sinus rhythm with marked sinus arrhythmia with 1st degree AV block Low voltage QRS Borderline ECG
== END 2017-03-08 12:55 | disposition hospice, inpatient (51) | DRG 270 ==
LOC: C.ER 10:31 → C.9E 11:42 → C.3T 16:46 → C.9I 03-07 16:48
PROVIDERS: ADMIT Family Medicine; ATTEND Family Medicine
PROC: 04CU3ZZ Extirpation of Matter from Left Peroneal Artery, Percutaneous Approach (ICD-10-PCS; 2017-03-06)
PROC: 047U3DZ Dilation of Left Peroneal Artery with Intraluminal Device, Percutaneous Approach (ICD-10-PCS; 2017-03-06)
PROC: 5A1D00Z (ICD-10-PCS; principal; 2017-03-08)
DX: E11.52 Type 2 diabetes mellitus with diabetic peripheral angiopathy with gangrene (principal); N18.6 End stage renal disease; I13.2 Hypertensive heart and chronic kidney disease with heart failure and with stage 5 chronic kidney disease, or end stage renal disease; E11.22 Type 2 diabetes mellitus with diabetic chronic kidney disease; E11.621 Type 2 diabetes mellitus with foot ulcer; E87.5 Hyperkalemia; D63.1 Anemia in chronic kidney disease; I25.10 Atherosclerotic heart disease of native coronary artery without angina pectoris; I44.0 Atrioventricular block, first degree; I48.91 Unspecified atrial fibrillation; J44.9 Chronic obstructive pulmonary disease, unspecified; I50.9 Heart failure, unspecified; Z99.2 Dependence on renal dialysis; Z79.4 Long term (current) use of insulin; Z87.891 Personal history of nicotine dependence; Z51.5 Encounter for palliative care; Z66 Do not resuscitate; Z87.01 Personal history of pneumonia (recurrent); Z95.5 Presence of coronary angioplasty implant and graft; L97.519 Non-pressure chronic ulcer of other part of right foot with unspecified severity

== ENCOUNTER 2017-03-08 12:16 | Inpatient (IN) | payer OTHER ==
[2017-03-08] MEDS ORDERED: DiphenhydrAMINE 50 mg/ml Inj IVP STA (19:27)
[2017-03-08] MEDS ORDERED: DiphenhydrAMINE 50 mg/ml Inj IVP PRN (19:28)
[2017-03-09] MEDS: HYDROmorphone 0.5 mg/0.5 ml ISec IVP PRN ×3 (09:51→15:14)
--- NOTE | 2017-03-09 10:15 | CP.PCM.PN ---
Subjective - Date & Time of Evaluation Date of Evaluation: 03/09/17 Time of Evaluation: 10:14 - Subjective Subjective: condition the same family at bedside hospice care Objective - Vital Signs/Intake and Output Intake and Output: 03/09/17 03/09/17 06:59 18:59 Intake Total 37.8 37.8 Output Total 0 0 Balance 37.8 37.8 - Medications Medications: Current Medications Acetaminophen (Tylenol 325mg Tab) 650 mg PO Q6 PRN PRN Reason: Fever >100.4 F Bisacodyl (Dulcolax) [address] ONCE PRN PRN Reason: Constipation Diphenhydramine HCl (Benadryl) 25 mg IVP Q6H PRN PRN Reason: Itching / Pruritus Hydromorphone HCl (Dilaudid) 0.5 mg IVP Q1H PRN PRN Reason: Pain, severe (8-10) Last Admin: 03/09/17 09:51 Dose: 0.5 mg Fentanyl Citrate 2,500 mcg/ (Sodium Chloride) 250 mls @ 3.74 mls/hr IV .Q24H CHERYL; 0.5 MCG/KG/HR PRN Reason: Protocol Last Admin: 03/08/17 15:01 Dose: 0.84 mcg/kg/hr, 6.3 mls/hr Lorazepam (Ativan) 0.5 mg IVP Q4H PRN PRN Reason: Anxiety
--- NOTE | 2017-03-09 10:44 | CP.PCM.HP ---
History of Present Illness - History of Present Illness History of Present Illness: Patient is a 86 year old female with PMH of CAD, coronary stents x 7, AFib, CHF , COPD, DM, HTN, CKD (dialysis MWF), asthma, arthritis, anxiety, left leg femoral popliteal artery bypass (2014), was admitted on 03/05/17 for Left AortoFemoral Angiogram with TPA administration. She underwent this procedure by Vascular Surgeon Dr. Yang Liu on 03/06/17. However after the procedure, the patiet's left lower extremity was still ischemic and patient was in unrelenting pain. Patient expressed her desire to have comfort care only so that her pain could be managed. She stated that she would rather pass away then have her leg amputated. Palliative Care and [facility] consults were obtained at the request of Daughter Lucille on 03/08/17. Patient wanted discontinuation of all of her chronic medical problems. Patient was accepted to in-patient hospice here at [facility] on 03/08/17. ROS is not possible as patient is asleep PMD: Jeremie Cuellar Cardio: Dr. Hughes Nephro: Dr. Cohen Pmhx: CAD, coronary stents x 7, AFib, CHF, COPD, DM, HTN, CKD (dialysis MWF), asthma, arthritis, anxiety Psurg: left leg femoral popliteal artery bypass (2014), 7 stents Fam history: mother had CAD, cirrhosis, otherwise unknown Socialhx: stopped smoking cigarettes 30 years ago Allergies: Ciprofloxacin, Codeine, Sulfa- hives iodine -anaphylaxis Physical Exam - Constitutional Appears: appears to comfortable and is asleep - Head Exam Head Exam: ATRAUMATIC, NORMAL INSPECTION, NORMOCEPHALIC - Eye Exam Eye Exam: EOMI, Normal appearance, PERRL - ENT Exam ENT Exam: Mucous Membranes Moist, Normal Exam - Neck Exam Neck exam: Positive for: Full Rom, Normal Inspection - Respiratory Exam Respiratory Exam: Rales, NORMAL BREATHING PATTERN Additional comments: Faint Bibasilar Inspiratory Rales - Cardiovascular Exam Cardiovascular Exam: Irregularly Irregular - GI/Abdominal Exam GI & Abdominal Exam: Normal Bowel Sounds, Soft. absent: Distended, Firm, Guarding - Extremities Exam Extremities exam: Positive for: calf tenderness. Negative for: pedal edema Additional comments: left foot cold to the touch capillary refill <2 seconds left toes slightly cyanotic right 5th toe dip: unstageable ulcer .8cm right 1st toe dip: .5 cm ulcer left 1st toe dip: .5cm ulcer ulcers dry, no purulence, no malodor - Back Exam Back exam: NORMAL INSPECTION. - Neurological Exam Neurological exam: CN II through XII grossly intact - Psychiatric Exam Psychiatric exam: In severe pain - Skin Additional comments: left foot cold to the touch, cyanotic toes right 5th toe dip: unstageable ulcer .8cm right 1st toe dip: .5 cm ulcer left 1st toe dip: .5cm ulcer ulcers dry, no purulence, no malodor Assessment and Plan: 1). Comfort Care Fentanyl Drip 0.5 mcg/kg per hour Dilaudid 0.5 mg IV Q1H PRN breakthrough pain Benadryl 25 mg IV Q6H PRN Pruritus Dulcolax 10 mg MA PRN Constipation Ativan 0.5 mg IV Q4H PRN Anxiety Antonio Drummond D.O. Present on Admission - Present on Admission Any Indicators Present on Admission: Yes History of DVT/PE: No History of Uncontrolled Diabetes: No Urinary Catheter: No Decubitus Ulcer Present: No Review of Systems - Review of Systems Review of Systems: Please see above Past Patient History - Infectious Disease Hx of Infectious Diseases: None - Tetanus Immunizations Tetanus Immunization: Unknown - Past Medical History & Family History Past Medical History?: Yes Pertinent Family History: Please see above - Past Social History Smoking Status: Unknown If Ever Smoked - CARDIAC Hx Atrial Fibrillation: Yes Hx Cardia Arrhythmia: Yes (AFIB) Hx Congestive Heart Failure: Yes Hx Hypertension: Yes Hx Pacemaker: No Hx Peripheral Edema: Yes (ble +1 edema) - PULMONARY Hx Asthma: Yes Hx Chronic Obstructive Pulmonary Disease (COPD): Yes Hx Pneumonia: Yes - NEUROLOGICAL Hx Neurological Disorder: Yes Hx Dizziness: Yes - HEENT Hx HEENT Problems: No - RENAL Hx Chronic Kidney Disease: Yes Hx Kidney Stones: Yes (1975) - ENDOCRINE/METABOLIC Hx Endocrine Disorders: Yes Hx Diabetes Mellitus Type 2: Yes - HEMATOLOGICAL/ONCOLOGICAL Hx Blood Disorders: Yes (blood transfusion) - INTEGUMENTARY Hx Dermatological Problems: Yes Other/Comment: fading red rash to ble from knees to feet and r arm, bright red rash to right hand and arm, right hand/arm rash started today, right great toe right foot 0.2cm round brown dry wound, r 5th toe redness tip is purple due to medication,redness swelling to toes decreasing since yesterday as per family member and pt. small 0.2cm round brown dry wound to outer left great toe redness and swelling to toes improving since yesterday as per family member and pt but still has +1 edema to left foot, hard thick toenails b/l feet, both feet sensitive to touch - MUSCULOSKELETAL/RHEUMATOLOGICAL Hx Arthritis: Yes Hx Falls: No Hx Fractures: Yes (BRIDGE OF NOSE) - GASTROINTESTINAL Hx Gastrointestinal Disorders: Yes (hemorrhoid) Hx Ulcer: Yes Other/Comment: constipatiion has resolved x 1 yr pt does not take laxatives anymore - GENITOURINARY/GYNECOLOGICAL Hx Genitourinary Disorders: Yes Other/Comment: pt voids every day x3 dialysis m/w/f at [facility] [place] - PSYCHIATRIC Hx Anxiety: Yes Hx Depression: No Hx Substance Use: No - SURGICAL HISTORY Hx Coronary Stent: Yes (x7) - ANESTHESIA Hx Anesthesia Reactions: No Hx Malignant Hyperthermia: No Meds Allergies/Adverse Reactions: Allergies Allergy/AdvReac Type Severity Reaction Status Date / Time ciprofloxacin Allergy Severe hives Verified 03/06/17 11:09 codeine Allergy Severe hives Verified 03/06/17 11:09 Sulfa (Sulfonamide Allergy Severe HIVES Verified 03/06/17 11:09 Antibiotics) iodine Allergy ANAPHYLAXIS Verified 03/06/17 11:09
--- NOTE | 2017-03-09 16:21 | CP.PCM.PN ---
Subjective - Date & Time of Evaluation Date of Evaluation: 03/09/17 Time of Evaluation: 16:15 - Subjective Subjective: Paged to the ICU to pronounce patient . Patient did not respond to verbal or tactile stimuli. Pupils are fixed, dilated and non-reactive to light. No breath sounds heard. No visible chest rise. No heart sounds auscultated. No pulses were palpable. Patient was pronounced at 16:15 03/09/17. Patient's two daughters, and extended family were at the bedside, were notified. Patient's PMD, Dr. Jeremie Mcclain, was notified at 16:30. Vascular surgeon, Dr. Yang Liu was notified at 16:25. EDRS certificate was completed, printed and placed in the patient's chart. EDRS Objective - Vital Signs/Intake and Output Intake and Output: 03/09/17 03/09/17 06:59 18:59 Intake Total 37.8 50.4 Output Total 0 0 Balance 37.8 50.4 - Medications Medications: Current Medications Acetaminophen (Tylenol 325mg Tab) 650 mg PO Q6 PRN PRN Reason: Fever >100.4 F Bisacodyl (Dulcolax) 10 mg [place] ONCE PRN PRN Reason: Constipation Diphenhydramine HCl (Benadryl) 25 mg IVP Q6H PRN PRN Reason: Itching / Pruritus Last Admin: 03/09/17 12:25 Dose: 25 mg Hydromorphone HCl (Dilaudid) 0.5 mg IVP Q1H PRN PRN Reason: Pain, severe (8-10) Last Admin: 03/09/17 15:14 Dose: 0.5 mg Fentanyl Citrate 2,500 mcg/ (Sodium Chloride) 250 mls @ 3.74 mls/hr IV .Q24H CHERYL; 0.5 MCG/KG/HR PRN Reason: Protocol Last Admin: 03/08/17 15:01 Dose: 0.84 mcg/kg/hr, 6.3 mls/hr Lorazepam (Ativan) 0.5 mg IVP Q4H PRN PRN Reason: Anxiety
--- NOTE | 2017-03-09 17:40 | CP.PCM.DIS ---
Provider - Provider Date of Admission: 03/08/17 12:16 Attending physician: Antonio Drummond DO Consults: [facility] Time Spent in preparation of Discharge (in minutes): 40 Hospital Course - Hospital Course Hospital Course: Patient is a 86 year old female with PMH of CAD, coronary stents x 7, AFib, CHF , COPD, DM, HTN, CKD (dialysis MWF), asthma, arthritis, anxiety, left leg femoral popliteal artery bypass (2014), was admitted on 03/05/17 for Left AortoFemoral Angiogram with TPA administration. She underwent this procedure by Vascular Surgeon Dr. Yang Liu on 03/06/17. However after the procedure, the patiet's left lower extremity was still ischemic and patient was in unrelenting pain. Patient expressed her desire to have comfort care only so that her pain could be managed. She stated that she would rather pass away then have her leg amputated. Palliative Care and [facility] consults were obtained at the request of Daughter Lucille on 03/08/17. Patient wanted discontinuation of all of her chronic medical problems. Patient was accepted to in-patient hospice here at [facility] on 03/08/17. Patient at 4: 15 PM 03/09/17. pronouncement note: Paged to the ICU to pronounce patient . Patient did not respond to verbal or tactile stimuli. Pupils are fixed, dilated and non-reactive to light. No breath sounds heard. No visible chest rise. No heart sounds auscultated. No pulses were palpable. Patient was pronounced at 16:15 03/09/17. Patient's two daughters, and extended family were at the bedside, were notified. Patient's PMD, Dr. Jeremie Mcclain, was notified at 16:30. Vascular surgeon, Dr. Yang Liu was notified at 16:25. EDRS certificate was completed, printed and placed in the patient's chart. EDRS Antonio Drummond D.O. Discharge Plan - Follow Up Plan Condition: GOOD Disposition: HOME/ ROUTINE
== END 2017-03-09 16:15 | DRG 293 ==
LOC: C.9I 12:16
PROVIDERS: ADMIT Family Medicine; ATTEND Family Medicine
DX: I13.0 Hypertensive heart and chronic kidney disease with heart failure and stage 1 through stage 4 chronic kidney disease, or unspecified chronic kidney disease (principal); E11.22 Type 2 diabetes mellitus with diabetic chronic kidney disease; I48.91 Unspecified atrial fibrillation; J44.9 Chronic obstructive pulmonary disease, unspecified; I50.9 Heart failure, unspecified; I25.10 Atherosclerotic heart disease of native coronary artery without angina pectoris; N18.9 Chronic kidney disease, unspecified; Z95.5 Presence of coronary angioplasty implant and graft; Z82.49 Family history of ischemic heart disease and other diseases of the circulatory system; Z87.891 Personal history of nicotine dependence